=== PATIENT | male | born 1935 | race Asian ===

== ENCOUNTER 2017-10-16 19:54 | Inpatient (IN) | payer MEDICARE, MEDICAID ==
[2017-10-17] MEDS ORDERED: NITROGLYCERIN OINT 2% 1 INCH PACKET TP STA (01:37)
[2017-10-17] MEDS ORDERED: NITROGLYCERIN OINT 2% 1 INCH PACKET TP ONE (01:41)
[2017-10-17 04:06] VITALS: BP 198/80
[2017-10-17] MEDS ORDERED: CLONIDINE HCL 0.2 MG PO PRN (05:52)
[2017-10-17] MEDS ORDERED: Hydrocodone/APAP 5mg/325mg Tab PO PRN (05:52)
[2017-10-17] MEDS ORDERED: Magnesium Hydroxide (MOM) 30 mL UDC PO PRN (05:52)
[2017-10-17] MEDS ORDERED: Fleet Enema 135 mL RC PRN (05:52)
[2017-10-17] MEDS ORDERED: DARBEPOETIN ALFA IN POLYSORBAT 60 MCG IJ SCH (06:00)
--- NOTE | 2017-10-17 06:54 | ED Physician Chart ---
ED Chief Complaint/HPI - Patient Information Date Seen:: 10/16/17 Time Seen:: 21:30 Chief Complaint:: LOW HEMOGLOBIN IN 7 RANGE History of Present Illness:: KNOWN DIALYSIS WITH SEVERAL DAYS CHRONIC ANEMIA, REPORTED TO PMD, PMD SENT TO OTHER ER, NO BEDS AVAILABLE, DIVERTED TO [facility]. Allergies:: Allergies Allergy/AdvReac Type Severity Reaction Status Date / Time No Known Allergies Allergy Verified 10/17/17 00:05 Vitals:: Vital Signs - 8 hr 10/17/17 00:45 HR 66 BP 204/80 Historian:: Medical Records Review:: Nurse's Note Reviewed ED Review of Systems - Review of Systems Other: NO ROS POSSIBLE, PATIENT SUFFERING FROM DEMENTIA AND PSYCHOSIS. ED Past Medical History - Past Medical History Obtainable: No Family Medical History - Family Member Mother History Unknown: Yes ED Physical Exam - Physical Examination General/Constitutional: Awake Head: Atraumatic Other Eyes comments:: PALE CONJUCTIVA. ENMT: External ears, nose nl Neck: Nontender Respiratory: Nl effort/Exclusion, Clear to Auscultation Cardio Vascular: RRR GI: No tenderness/rebounding/guarding : No CVA tenderness Extremities: No tenderness or effusion Other Neuro/Psych comments:: SUFFERING FROM DEMENTIA AND PSYCHOSIS. Misc: Normal back ED Labs/Radiology/EKG Results - Lab Results Results: UNABLE TO DRAW FOR LABWORK PATIENT STARTED TO STRIKE OUT AT STAFF. ED Assessment - Assessment General Assessment: CHRONIC RENAL FAILURE WITH ANEMIA. HISTORY OF PSYCHOSIS WITH DEMENTIA. C. DIFF POSITIVE. ED Septic Shock - <6hrs of presentation: Vital Signs: Vital Signs - 8 hr 10/17/17 00:45 HR 66 BP 204/80 ED Reassessment (Disposition) - Reassessment Reassessment:: UNCHANGED CONDITION. PATIENT WAS SUPPOSED TO BE ADMITTED TO [facility], HOWEVER, THEY WERE NOT ABLE TO ACCEPT DUE TO VOLUME AND PATIENT WAS SENT HERE FOR EVALUATION. Reassessment Condition:: Unchanged - Diagnosis Diagnosis:: CHRONIC KIDNEY DISEASE WITH ANEMIA. - Patient Disposition Discharge/Transfer:: Acute Care w/in this hosp ED Discharge Plan - Patient Disposition Admit/Discharge/Transfer: Acute Care w/in this hosp Condition at Disposition: Stable
--- NOTE | 2017-10-17 07:50 | History and Physical ---
History of Present Illness - HPI Chief Complaint: Low Hemoglobin HPI: 82 year old male who presents to [facility] ER for evaluation of Low hemoglobin. Patient refused blood draw while in the ER. 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: Report: Dementia GI: Report: No Pertinent Hx Psych: Report: Psychosis Musculoskeletal: Report: Osteoarthritis Rheumatologic: Report: No pertinent Hx Infectious Disease: Report: No Pertinent Hx Renal/: Report: Chronic Renal Failure (on Hemodialysis) Endocrine: Report: Diabetes Dermatology: Report: No Pertinent Hx - Past Surgical History Past Surgical History: Other (Left Arm A-V shunt) Family Medical History - Family Member Mother History Unknown: Yes Ethnicity: Non- Social History Smoke: No Alcohol: None Drugs: None Lives: Long-Term - Medications Home Medications: Home Medication Medication Instructions Recorded Type Acetaminophen [Tylenol Extra 500 mg PO Q4HR PRN 10/17/17 History Strength] Acetaminophen [Tylenol] 650 mg PO Q4HR PRN 10/17/17 History Aspirin [Aspirin Chewable] 81 mg PO DAILY 10/17/17 History Bisacodyl [Dulcolax 10 Mg Supp] 10 mg RC DAILY PRN 10/17/17 History Calcium Carbonate [Tums] 500 mg PO Q6HR PRN 10/17/17 History Clonidine HCl [Catapres] 0.2 mg PO Q6HR PRN 10/17/17 History Darbepoetin Satish in Polysorbat 60 mcg IJ QWED 10/17/17 History [Aranesp] Fidaxomicin [Dificid] 200 mg PO BID 10/17/17 History Fleet Enema [Fleet Enema] 135 ml RC Q48HR PRN 10/17/17 History Hydrocodone/Acetaminophen [[place] 1 each PO Q6HR PRN 10/17/17 History 325 mg-5 mg*] Magnesium Hydroxide [Milk of 30 ml PO HS PRN 10/17/17 History Magnesia] Metoprolol Tartrate [Lopressor] 25 mg PO BID 10/17/17 History Nitroglycerin [Nitro-Bid] 1 inch TD Q8HR 10/17/17 History Pantoprazole [Protonix] 40 mg PO DAILY 10/17/17 History Sevelamer Carbonate [Renvela] 2.4 gm PO TID 10/17/17 History Vancomycin HCl [Vancocin] 250 mg PO BID 10/17/17 History Venlafaxine HCl ER [Effexor XR] 37.5 mg PO DAILY 10/17/17 History Zolpidem Tartrate [Ambien] 5 mg PO HS PRN 10/17/17 History cloNIDine 0.2 mg/24 hr 1 patch TD We 10/17/17 History [[id number]*] - Allergies Allergies/Adverse Reactions: Allergies Allergy/AdvReac Type Severity Reaction Status Date / Time No Known Allergies Allergy Verified 10/17/17 00:05 Review of Systems - Review of Systems Constitutional: Report: No Significant Eyes: Report: No Significant ENT: Report: No Significant Respiratory: Report: No Significant Cardiovascular: Report: No Significant Gastrointestinal: Report: No Significant Genitourinary: Report: No Significant Musculoskeletal: Report: No Significant Skin: Report: No Significant Neurological: Report: Confusion Physical Exam - Physical Exam HEENT: Report: Ears Nose Throat within normal limits, Pharnyx within normal limits Neck: Report: Within normal limits Cardiovascular Systems: Report: +s1/s2 noted, Regular, Rate and Rhythm Respiratory: Report: Breath Sounds are within normal limits Abdomen: Report: Non-tender to palpation, Tender to palpation Back: Report: Inspection of back is within normal limits. Extremities: Report: Non-tender to palpation. Skin: Report: Color of skin is within normal limits Neuro/Psych: Report: Mood affect is within normal limits, A+Ox3 - Assessment Assessment: Anemia -- repeat CBC ESRD on HD -- Renal consult, repeat BMP PNA ... will order chest xray sepsis ... order CBC anxiety/depression .. psychiatric consult COPD stable Dementia C- diff Psychosis DM ... accucheck CHF HTN ... continue Clonidine, Metoprolol - Plan Plan: see orders
[2017-10-17] MEDS ORDERED: SEVELAMER CARBONATE 2.4 GM PO SCH (09:00)
[2017-10-17] MEDS ORDERED: Venlafaxine HCl ER 37.5 mg Tab PO SCH (09:00)
[2017-10-17] MEDS ORDERED: VTE Chemical Prophylaxis Screen/Admission MC PRN (09:00)
[2017-10-17] MEDS ORDERED: FIDAXOMICIN 200 MG PO SCH (09:00)
[2017-10-17] MEDS ORDERED: VANCOMYCIN HCL 250 MG PO SCH (09:00)
[2017-10-17 10:20] LABS: % EOSINOPHILS 14.4 % (0.0-5.0); % LYMPHOCYTES 14.3 % (20.0-50.0); % MONOCYTES 10.3 % (2.0-10.0); BASOPHILE ABSOLUTE 0.1 Th/cumm (0-0.2); EOSINOPHILE ABSOLUTE 0.8 Th/cmm (0.1-0.4); HEMATOCRIT 28.3 % (41.0-60); HEMOGLOBIN 9.2 gm/dL (12-16); LYMPHOCYTE ABSOLUTE 0.8 Th/cmm (1.5-3.0); MEAN CELL VOLUME 93.4 fl (80-99); MEAN CORPUSCULAR HEMOGLOBIN 30.3 pg (27.0-31.0); MEAN CORPUSCULAR HGB CONC 32.4 pg (28.0-36.0); MEAN PLATELET VOLUME 6.4 fl; MONOCYTE ABSOLUTE 0.6 Th/cmm (0.3-1.0); NEUTROPHILE ABSOLUTE 3.3 Th/cmm (1.8-8.0); PLATELET COUNT 263 Th/cmm (150-400); RED BLOOD COUNT 3.03 Mil/cmm (3.80-5.80); RED CELL DISTRIBUTION WIDTH 19.6 % (11.5-20.0); WHITE BLOOD COUNT 5.6 Th/cmm (4.8-10.8)
[2017-10-17] MEDS: Pantoprazole 40 mg EC Tab PO SCH (10:25)
[2017-10-17] MEDS: Aspirin 81mg Chewable Tab PO SCH (10:25)
--- NOTE | 2017-10-17 10:27 | Diagnostic Imaging Report ---
CHEST X-RAY: AP view INDICATION: Congestion COMPARISON: None FINDINGS: Increased interstitial lung markings are noted. No focal consolidation. Small bilateral effusions are noted.. Cardiomegaly noted. Degenerative changes of the spine are noted. No evidence of pneumothorax. Right fifth and sixth rib fractures are noted, age indeterminate. Vascular stent of the left upper extremity is noted. IMPRESSION: Findings suggestive of mild pulmonary vascular congestion/early CHF. These correlate clinically. Right fifth and sixth rib fractures, age indeterminate. No evidence of a pneumothorax. Cardiomegaly.
[2017-10-17 10:44] LABS: ALB/GLOB RATIO 0.6 (1.0-1.8); ALBUMIN 2.9 gm/dL (4.2-5.5); ALKALINE PHOSPHATASE 276 U/L (34-104); ANION GAP 11.2 (7.0-16.0); BILIRUBIN,TOTAL 0.6 mg/dL (0.3-1.0); BUN - UREA NITROGEN 21 mg/dL (7-25); CALCIUM SERUM 8.7 mg/dL (8.6-10.3); CARBON DIOXIDE 28.6 mEq/L (21.0-31.0); CHLORIDE 96 mEq/L (98-107); CREATININE - SERUM 3.2 mg/dL (0.7-1.3); GLUCOSE 107 mg/dL (70-105); SGOT 20 U/L (13-39); SGPT/ALT 22 U/L (7-52); SODIUM SERUM 133 mEq/L (136-145); TOTAL PROTEIN,SERUM 7.6 gm/dL (6.0-8.3)
[2017-10-17 10:52] LABS: INR 1.09 (0.5-1.4); PROTHROMBIN TIME (TEST) 11.4 SECONDS (9.5-11.5)
[2017-10-17] MEDS: NITROGLYCERIN OINT 2% 1 INCH PACKET TP SCH ×2 (13:08→21:56)
[2017-10-17 13:15] LABS: POTASSIUM SERUM 2.8 mEq/L (3.5-5.1)
[2017-10-17] MEDS ORDERED: Potassium Chloride 20 mEq ER Tab PO ONE (13:46)
[2017-10-17] MEDS: Vancomycin HCL 250 mg /10mL UDC PO SCH ×3 (14:11→21:57)
--- NOTE | 2017-10-17 18:08 | Consultation ---
Consult Note - Consult Note Service Date: 10/17/17 Referring Physician: Simba Sy Consult Note: PHYSICIAN Consultation Note: Date of Admission: 10/17/17 Purpose of Consultation: sepsis, pneumonia. Chief Complaint: Patient FRED HUGHES was admitted to location Medical[facility] Unit I with ANEMIA,RENAL FAILURE. History of Present Illness: 82 year old male with history of dementia, CKD 5 on HD, brought from SNF for anemia. As patient was suspected to have pneumonia nad sepsis, he was started on vanco IV and ID consult was called for antibiotic management. He is afebrile and WBC count was 5,600. He has been refusing IV access. Past Medical History: PNA, sepsis, anxiety/depression, COPD, Dementia, C- diff, ESRD, Anemia, Psychosis, DM, CHF, HTN. Allergies Allergy/AdvReac Type Severity Reaction Status Date / Time No Known Allergies Allergy Verified 10/17/17 00:05 Vital Signs Temp 97.8 F 10/17/17 15:54 Pulse 72 10/17/17 17:11 Resp 17 10/17/17 15:54 BP 137/52 10/17/17 17:11 Pulse Ox 98 10/17/17 15:54 Intake & Output 10/16/17 10/17/17 10/17/17 18:59 06:59 18:59 Intake Total 360 Balance 360 Weight (lbs) 48.988 kg Intake: Oral 360 Other: # Voids 2 Laboratory Results - last 24 hr 10/17/17 10/17/17 10/17/17 09:55 09:55 09:55 WBC 5.6 RBC 3.03 L Hgb 9.2 L Hct 28.3 L MCV 93.4 MCH 30.3 MCHC Differential 32.4 RDW 19.6 Plt Count 263 MPV 6.4 Neutrophils % 60.0 Lymphocytes % 14.3 L Monocytes % 10.3 H Eosinophils % 14.4 H Basophils % 1.0 PT 11.4 INR 1.09 Sodium Potassium Chloride Carbon Dioxide Anion Gap BUN Creatinine Est GFR ( Amer) Est GFR (Non-Af Amer) BUN/Creatinine Ratio Glucose Calcium Total Bilirubin AST ALT Alkaline Phosphatase Total Protein Albumin Globulin Albumin/Globulin Ratio Blood Type AB POSITIVE Antibody Screen NEGATIVE 10/17/17 09:55 WBC RBC Hgb Hct MCV MCH MCHC Differential RDW Plt Count MPV Neutrophils % Lymphocytes % Monocytes % Eosinophils % Basophils % PT INR Sodium 133 L Potassium 2.8 L* Chloride 96 L Carbon Dioxide 28.6 Anion Gap 11.2 BUN 21 Creatinine 3.2 H Est GFR ( Amer) TNP Est GFR (Non-Af Amer) TNP BUN/Creatinine Ratio 6.6 Glucose 107 H Calcium 8.7 Total Bilirubin 0.6 AST 20 ALT 22 Alkaline Phosphatase 276 H Total Protein 7.6 Albumin 2.9 L Globulin 4.7 Albumin/Globulin Ratio 0.6 L Blood Type Antibody Screen Home Medication Medication Instructions Recorded Type Acetaminophen [Tylenol Extra 500 mg PO Q4HR PRN 10/17/17 History Strength] Acetaminophen [Tylenol] 650 mg PO Q4HR PRN 10/17/17 History Aspirin [Aspirin Chewable] 81 mg PO DAILY 10/17/17 History Bisacodyl [Dulcolax 10 Mg Supp] 10 mg RC DAILY PRN 10/17/17 History Calcium Carbonate [Tums] 500 mg PO Q6HR PRN 10/17/17 History Clonidine HCl [Catapres] 0.2 mg PO Q6HR PRN 10/17/17 History Darbepoetin Satish in Polysorbat 60 mcg IJ QWED 10/17/17 History [Aranesp] Fidaxomicin [Dificid] 200 mg PO BID 10/17/17 History Fleet Enema [Fleet Enema] 135 ml RC Q48HR PRN 10/17/17 History Hydrocodone/Acetaminophen [[place] 1 each PO Q6HR PRN 10/17/17 History 325 mg-5 mg*] Magnesium Hydroxide [Milk of 30 ml PO HS PRN 10/17/17 History Magnesia] Metoprolol Tartrate [Lopressor] 25 mg PO BID 10/17/17 History Nitroglycerin [Nitro-Bid] 1 inch TD Q8HR 10/17/17 History Pantoprazole [Protonix] 40 mg PO DAILY 10/17/17 History Sevelamer Carbonate [Renvela] 2.4 gm PO TID 10/17/17 History Vancomycin HCl [Vancocin] 250 mg PO BID 10/17/17 History Venlafaxine HCl ER [Effexor XR] 37.5 mg PO DAILY 10/17/17 History Zolpidem Tartrate [Ambien] 5 mg PO HS PRN 10/17/17 History cloNIDine 0.2 mg/24 hr 1 patch TD We 10/17/17 History [[id number]-[id number]-9*] Current Medications Generic Name Dose Route Start Last Admin Trade Name Freq PRN Reason Stop Dose Admin Acetaminophen 650 mg 10/17/17 05:52 Tylenol PO 12/16/17 05:51 Q4HR PRN Pain or Fever >101 Acetaminophen/Hydrocodone Bitart 1 tab 10/17/17 05:52 [place] 5mg/325mg PO 12/16/17 05:51 Q6HR PRN Pain (Severe) Aspirin 81 mg 10/17/17 09:00 10/17/17 10:25 Aspirin Chewable PO 12/16/17 08:59 Not Given DAILY LUIGI Bisacodyl 10 mg 10/17/17 05:52 Dulcolax 10 Mg Supp RC 12/16/17 05:51 DAILY PRN Constipation Calcium Carbonate 500 mg 10/17/17 05:52 Tums PO 12/16/17 05:51 Q6HR PRN Heartburn Clonidine HCl 1 patch 10/21/17 05:52 [id number]-[id number]-8 TD 12/20/17 05:51 QMON [facility] Epoetin Satish 10,000 units 10/19/17 12:33 Epogen SUBQ 12/18/17 12:32 MoWeFr [facility] Magnesium Hydroxide 30 ml 10/17/17 05:52 Milk Of Magnesia PO 12/16/17 05:51 HS PRN Constipation Metoprolol Tartrate 25 mg 10/17/17 09:00 10/17/17 17:11 Lopressor PO 12/16/17 08:59 Not Given BID LUIGI Miscellaneous 0.2 mg 10/17/17 05:52 Clonidine Hcl [Catapres] PO Q6HR PRN SBP > 160 Miscellaneous 1 ea 10/17/17 09:00 Vte Chemical Prophylaxis Screen/ Admission [facility] 12/16/17 08:59 PRN PRN PROTOCOL Nitroglycerin 1 inch 10/17/17 13:00 10/17/17 13:08 Nitro-Bid TP 12/16/17 12:59 1 inch Q8HR [facility]I Administration Pantoprazole Sodium 40 mg 10/17/17 09:00 10/17/17 10:25 Protonix PO 12/16/17 08:59 Not Given DAILY [facility] Sevelamer Carbonate 2,400 mg 10/17/17 09:00 10/17/17 14:11 Renvela PO 12/16/17 08:59 Not Given TID [facility] Sodium Phosphate 135 ml 10/17/17 05:52 Fleet Enema RC 12/16/17 05:51 Q48HR PRN Constipation Vancomycin HCl 250 mg 10/17/17 13:00 10/17/17 17:12 Vancomycin Oral PO 12/16/17 12:59 Not Given QID [facility] Venlafaxine HCl 37.5 mg 10/17/17 09:00 Effexor Xr PO 12/16/17 08:59 DAILY [facility] Protocol Zolpidem Tartrate 5 mg 10/17/17 05:52 Ambien PO 12/16/17 05:51 HS PRN Insomnia Review of Systems: A 12 point ROS was reviewed with the pertinent positive and negatives noted in the HPI. Social History Smoking Status Smoker, status unknown Drug Use No Alcohol Use No Family Medical History Unknown. Physical Exam: General: comfortable, not in any distress. HEENT: Head is normocephalic, atraumatic. Oral cavity moist pink tongue, eyes: pallor present. Left eye: cornial opacity. Neck: supple, no JVD. no carotid bruit. Cardio: S1 and S2, dystolic murmur present. Respiratory: vesicular breath sounds, crackles present. Abdominal: Soft NT ND BS present. Genital/Urinary: deferred. Extremities: NCCE. AV fistula in the left arm. Neurological: Alert awake oriented x 3. Assessment: 1. Pneumonia versus CHF, more likely CHF. 2. CKD 5 on HD. 3. Protein calorie malnutrition. 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 5. anxiety/depression 6. COPD. 7. Dementia. 8. C- diff. 9. ESRD. 10. Anemia. 11. Psychosis. 12. DM. 13. CHF. 14. HTN Plan: Patient is refusing IV access. Will change antibiotic to levaquin po. for few days,. meanwhile follow up sepsis w/u. If blood culture remain negative, may dc antibiotics. Thank you, Dr Sy for involving me in taking care of this patient,. Signed, Jose Parikh M.D. [id number]
--- NOTE | 2017-10-18 02:19 | Consultation ---
DATE OF CONSULTATION: 10/17/2017 The patient was seen and evaluated. The patient's chart reviewed. His initial consult and evaluation from psychiatry. REFERRING PHYSICIAN: Dr. Simba Sy CONSULTING PHYSICIAN: Dr. Castro REASON FOR CONSULTATION: Agitation. CHIEF COMPLAINT: Selectively mute. HISTORY OF PRESENT ILLNESS: The patient is an 82-year-old male who was brought in here from the Hospital ER for an evaluation of hemoglobin that was low. Since the hospital course, the patient has been refusing blood draws, refusing with the medications, even with the assistance of a clinical operations manager on the unit, the patient is selectively mute and does not engage in the interview and selectively mute. He continues to position, disengaged and withdrawn and almost observed to be scared. Therefore, a poor historian, limited historian gathered from his current visitation with further collateral is needed from family. PAST MEDICAL HISTORY: Includes history of pneumonia, currently worked up for sepsis history in the past, COPD, dementia, C. diff, end-stage renal disease, anemia, diabetes, CHF and hypertension. PAST PSYCHIATRIC HISTORY: History of dementia and depression. ALLERGIES TO MEDICATIONS: NKDA. PSYCHOSOCIAL ENVIRONMENTAL HISTORY: Lives with the family. Denies any sexual abuse. Unable to elaborate any more beyond that. No history of recent drug or alcohol use. FAMILY PSYCHIATRIC HISTORY: None. CURRENT HOME MEDICATIONS: Include aspirin, Colace, Aranesp, metoprolol not sure. Glycerin, mag ox, vancomycin, Effexor 37.5 and Ambien 5 mg p.o. p.r.n. PREVIOUS INPATIENT OR OUTPATIENT PSYCHIATRIC HOSPITALIZATIONS: Unknown. PREVIOUS SUICIDE ATTEMPT: Unknown. MENTAL STATUS EXAMINATION: He is in his room, in position, scared, selectively mute, disengaged and withdrawn. Limited insight, judgment and impulse control. Unable to assess immediate, recent memory, attention span upon information, concentration and fund of knowledge due to patient refusal. ASSESSMENT AND PLAN: The patient is an 82-year-old male with history of depression, who was brought in here, found to have low levels of hemoglobin and also potassium, being repleted who finds himself recently refusing medications and even with the translating services. The patient is selectively mute and easily irritable. It is not uncommon with the patient's current multiple medical comorbidities and also history of dementia with the change in the comorbid medical illnesses to exacerbate the underlying patient's behavior. Unclear how much of his symptoms are secondary to delirium and currently being worked up for sepsis per medical team. In the meantime, recommend to continue with the current medication regimen, which includes Effexor, since the patient has been on it and without side effects. Do recommend to use low doses of Seroquel 25 mg p.o. b.i.d. for acute agitation as needed. If the patient continues to refuse p.o., may recommend low dosages of Zyprexa 2.5 mg IM only if the patient's behavior disturbance causes any potential risk to self or others. In the meantime, we will continue follow alongside and making recommendations as he continues to being worked up medically at this point. Anticholinergics and benzodiazepines may disinhibit the patient, please use cautiously as it would exacerbate the patient's neurocognitive impairment and also behavior disturbances. PRIMARY DIAGNOSES: Major depressive disorder. SECONDARY DIAGNOSES: Dementia with behavior disturbances, rule out delirium. Medical diagnosis as noted by Dr. Sy includes anemia, end-stage renal disease, pneumonia, sepsis, chronic obstructive pulmonary disease, diabetes, congestive heart failure, hypertension. 1. No criteria for 5150 at this point. 2. Will continue to follow alongside during the medical workup is being made. Once the patient is medically cleared and the patient continues to be behaviorally putting himself or others in danger, may consider transfer to [facility] once medically cleared and if he continues to have behavior disturbances. 3. Provide supportive therapy. 4. We will continue obtaining more collateral baseline information. 5. Recommend low doses of Seroquel 25 mg p.o. b.i.d. p.r.n. for acute agitation. May recommended formulary of Zyprexa 2.5 mg IM if the patient presents himself in danger. Overall, recommend low use or no use at all of benzodiazepines and anticholinergic as it would exacerbate the patient's delirium. JOB# [id number]
[2017-10-18] MEDS: NITROGLYCERIN OINT 2% 1 INCH PACKET TP SCH ×4 (05:26→22:23)
--- NOTE | 2017-10-18 06:44 | General Progress Note ---
Subjective - Review of Systems Service Date: 10/18/17 Subjective: 82 year old male admitted for low hemoglobin, ESRD on HD. Still refusing IV's. labwork done yesterday. Objective - Results Result Diagrams: 10/17/17 09:55 10/17/17 09:55 Recent Labs: Laboratory Last Values WBC 5.6 Th/cmm (4.8-10.8) 10/17/17 09:55 RBC 3.03 Mil/cmm (3.80-5.80) L 10/17/17 09:55 Hgb 9.2 gm/dL (12-16) L 10/17/17 09:55 Hct 28.3 % (41.0-60) L 10/17/17 09:55 MCV 93.4 fl (80-99) 10/17/17 09:55 MCH 30.3 pg (27.0-31.0) 10/17/17 09:55 MCHC Differential 32.4 pg (28.0-36.0) 10/17/17 09:55 RDW 19.6 % (11.5-20.0) 10/17/17 09:55 Plt Count 263 Th/cmm (150-400) 10/17/17 09:55 MPV 6.4 fl 10/17/17 09:55 Neutrophils % 60.0 % (40.0-80.0) 10/17/17 09:55 Lymphocytes % 14.3 % (20.0-50.0) L 10/17/17 09:55 Monocytes % 10.3 % (2.0-10.0) H 10/17/17 09:55 Eosinophils % 14.4 % (0.0-5.0) H 10/17/17 09:55 Basophils % 1.0 % (0.0-2.0) 10/17/17 09:55 PT 11.4 SECONDS (9.5-11.5) 10/17/17 09:55 INR 1.09 (0.5-1.4) 10/17/17 09:55 Sodium 133 mEq/L (136-145) L 10/17/17 09:55 Potassium 2.8 mEq/L (3.5-5.1) L* 10/17/17 09:55 Chloride 96 mEq/L (98-107) L 10/17/17 09:55 Carbon Dioxide 28.6 mEq/L (21.0-31.0) 10/17/17 09:55 Anion Gap 11.2 (7.0-16.0) 10/17/17 09:55 BUN 21 mg/dL (7-25) 10/17/17 09:55 Creatinine 3.2 mg/dL (0.7-1.3) H 10/17/17 09:55 Est GFR ( Amer) TNP 10/17/17 09:55 Est GFR (Non-Af Amer) TNP 10/17/17 09:55 BUN/Creatinine Ratio 6.6 10/17/17 09:55 Glucose 107 mg/dL (70-105) H 10/17/17 09:55 Calcium 8.7 mg/dL (8.6-10.3) 10/17/17 09:55 Total Bilirubin 0.6 mg/dL (0.3-1.0) 10/17/17 09:55 AST 20 U/L (13-39) 10/17/17 09:55 ALT 22 U/L (7-52) 10/17/17 09:55 Alkaline Phosphatase 276 U/L (34-104) H 10/17/17 09:55 Total Protein 7.6 gm/dL (6.0-8.3) 10/17/17 09:55 Albumin 2.9 gm/dL (4.2-5.5) L 10/17/17 09:55 Globulin 4.7 gm/dL 10/17/17 09:55 Albumin/Globulin Ratio 0.6 (1.0-1.8) L 10/17/17 09:55 Blood Type AB POSITIVE 10/17/17 09:55 Antibody Screen NEGATIVE 10/17/17 09:55 - Physical Exam Vitals and I&O: Vital Signs Temp 97.5 F 10/18/17 04:44 Pulse 72 10/18/17 05:26 Resp 18 10/18/17 04:44 BP 185/69 10/18/17 05:26 Pulse Ox 99 10/18/17 04:44 Intake & Output 10/17/17 10/17/17 10/18/17 06:59 18:59 06:59 Intake Total 360 200 240 Balance 360 200 240 Weight (lbs) 48.988 kg 48.988 kg 48.988 kg Intake: Oral 360 200 240 Other: # Voids 2 1 2 Active Medications: Current Medications Acetaminophen (Tylenol) 650 mg PO Q4HR PRN PRN Reason: Pain or Fever >101 Stop: 12/16/17 05:51 Acetaminophen/Hydrocodone Bitart ([place] 5mg/325mg) 1 tab PO Q6HR PRN PRN Reason: Pain (Severe) Stop: 12/16/17 05:51 Aspirin (Aspirin Chewable) 81 mg PO DAILY [facility] Stop: 12/16/17 08:59 Last Admin: 10/17/17 10:25 Dose: Not Given Bisacodyl (Dulcolax 10 Mg Supp) 10 mg RC DAILY PRN PRN Reason: Constipation Stop: 12/16/17 05:51 Calcium Carbonate (Tums) 500 mg PO Q6HR PRN PRN Reason: Heartburn Stop: 12/16/17 05:51 Clonidine HCl (Nxfnkcat-Eye-4) 1 patch TD QMON [facility] Stop: 12/20/17 05:51 Epoetin Satish (Epogen) 10,000 units SUBQ MoWeFr [facility] Stop: 12/18/17 12:32 Levofloxacin (Levaquin) 250 mg PO Q48H [facility] Stop: 12/18/17 20:59 Magnesium Hydroxide (Milk Of Magnesia) 30 ml PO HS PRN PRN Reason: Constipation Stop: 12/16/17 05:51 Metoprolol Tartrate (Lopressor) 25 mg PO BID [facility] Stop: 12/16/17 08:59 Last Admin: 10/17/17 17:11 Dose: Not Given Miscellaneous (Clonidine Hcl [Catapres]) 0.2 mg PO Q6HR PRN PRN Reason: SBP > 160 Miscellaneous (Vte Chemical Prophylaxis Screen/ Admission) 1 ea [facility] PRN PRN PRN Reason: PROTOCOL Stop: 12/16/17 08:59 Nitroglycerin (Nitro-Bid) 1 inch TP Q8HR [facility] Stop: 12/16/17 12:59 Last Admin: 10/18/17 05:26 Dose: 1 inch Pantoprazole Sodium (Protonix) 40 mg PO DAILY [facility] Stop: 12/16/17 08:59 Last Admin: 10/17/17 10:25 Dose: Not Given Sevelamer Carbonate (Renvela) 2,400 mg PO TID [facility] Stop: 12/16/17 08:59 Last Admin: 10/17/17 21:57 Dose: Not Given Sodium Phosphate (Fleet Enema) 135 ml RC Q48HR PRN PRN Reason: Constipation Stop: 12/16/17 05:51 Vancomycin HCl (Vancomycin Oral) 250 mg PO QID [facility] Stop: 12/16/17 12:59 Last Admin: 10/17/17 21:57 Dose: Not Given Venlafaxine HCl (Effexor Xr) 37.5 mg PO DAILY [facility] PRN Reason: Protocol Stop: 12/16/17 08:59 Zolpidem Tartrate (Ambien) 5 mg PO HS PRN PRN Reason: Insomnia Stop: 12/16/17 05:51 Last Admin: 10/17/17 23:54 Dose: 5 mg General: Alert HEENT: Atraumatic, PERRLA Neck: Supple Cardiovascular: Regular rate, Normal S1, Normal S2 Abdomen: Bowel sounds, Soft Extremities: no Clubbing, no Cyanosis, no Edema Neurological: Normal gait Assessment/Plan - Assessment Assessment: Anemia -- repeat CBC ESRD on HD -- Renal consult, repeat BMP PNA ... will order chest xray sepsis ... order CBC anxiety/depression .. psychiatric consult COPD stable Dementia C- diff Psychosis DM ... accucheck CHF HTN ... continue Clonidine, Metoprolol
[2017-10-18] MEDS: Pantoprazole 40 mg EC Tab PO SCH (08:58)
[2017-10-18] MEDS: Aspirin 81mg Chewable Tab PO SCH (08:58)
[2017-10-18] MEDS: Vancomycin HCL 250 mg /10mL UDC PO SCH ×3 (08:58→18:04)
--- NOTE | 2017-10-18 16:06 | General Progress Note ---
Subjective - Review of Systems Service Date: 10/18/17 Subjective: awake, confused Objective - Results Result Diagrams: 10/17/17 09:55 10/17/17 09:55 Recent Labs: Laboratory Last Values WBC 5.6 Th/cmm (4.8-10.8) 10/17/17 09:55 RBC 3.03 Mil/cmm (3.80-5.80) L 10/17/17 09:55 Hgb 9.2 gm/dL (12-16) L 10/17/17 09:55 Hct 28.3 % (41.0-60) L 10/17/17 09:55 MCV 93.4 fl (80-99) 10/17/17 09:55 MCH 30.3 pg (27.0-31.0) 10/17/17 09:55 MCHC Differential 32.4 pg (28.0-36.0) 10/17/17 09:55 RDW 19.6 % (11.5-20.0) 10/17/17 09:55 Plt Count 263 Th/cmm (150-400) 10/17/17 09:55 MPV 6.4 fl 10/17/17 09:55 Neutrophils % 60.0 % (40.0-80.0) 10/17/17 09:55 Lymphocytes % 14.3 % (20.0-50.0) L 10/17/17 09:55 Monocytes % 10.3 % (2.0-10.0) H 10/17/17 09:55 Eosinophils % 14.4 % (0.0-5.0) H 10/17/17 09:55 Basophils % 1.0 % (0.0-2.0) 10/17/17 09:55 PT 11.4 SECONDS (9.5-11.5) 10/17/17 09:55 INR 1.09 (0.5-1.4) 10/17/17 09:55 Sodium 133 mEq/L (136-145) L 10/17/17 09:55 Potassium 2.8 mEq/L (3.5-5.1) L* 10/17/17 09:55 Chloride 96 mEq/L (98-107) L 10/17/17 09:55 Carbon Dioxide 28.6 mEq/L (21.0-31.0) 10/17/17 09:55 Anion Gap 11.2 (7.0-16.0) 10/17/17 09:55 BUN 21 mg/dL (7-25) 10/17/17 09:55 Creatinine 3.2 mg/dL (0.7-1.3) H 10/17/17 09:55 Est GFR ( Amer) TNP 10/17/17 09:55 Est GFR (Non-Af Amer) TNP 10/17/17 09:55 BUN/Creatinine Ratio 6.6 10/17/17 09:55 Glucose 107 mg/dL (70-105) H 10/17/17 09:55 Calcium 8.7 mg/dL (8.6-10.3) 10/17/17 09:55 Total Bilirubin 0.6 mg/dL (0.3-1.0) 10/17/17 09:55 AST 20 U/L (13-39) 10/17/17 09:55 ALT 22 U/L (7-52) 10/17/17 09:55 Alkaline Phosphatase 276 U/L (34-104) H 10/17/17 09:55 Total Protein 7.6 gm/dL (6.0-8.3) 10/17/17 09:55 Albumin 2.9 gm/dL (4.2-5.5) L 10/17/17 09:55 Globulin 4.7 gm/dL 10/17/17 09:55 Albumin/Globulin Ratio 0.6 (1.0-1.8) L 10/17/17 09:55 Blood Type AB POSITIVE 10/17/17 09:55 Antibody Screen NEGATIVE 10/17/17 09:55 - Physical Exam Vitals and I&O: Vital Signs Temp 97.3 F 10/18/17 12:00 Pulse 70 10/18/17 13:43 Resp 19 10/18/17 12:00 BP 175/91 10/18/17 12:00 Pulse Ox 94 10/18/17 12:00 Intake & Output 10/17/17 10/18/17 10/18/17 18:59 06:59 18:59 Intake Total 200 240 Balance 200 240 Weight (lbs) 48.988 kg 48.988 kg Intake: Oral 200 240 Other: # Voids 1 2 Active Medications: Current Medications Acetaminophen (Tylenol) 650 mg PO Q4HR PRN PRN Reason: Pain or Fever >101 Stop: 12/16/17 05:51 Acetaminophen/Hydrocodone Bitart ([place] 5mg/325mg) 1 tab PO Q6HR PRN PRN Reason: Pain (Severe) Stop: 12/16/17 05:51 Aspirin (Aspirin Chewable) 81 mg PO DAILY [facility] Stop: 12/16/17 08:59 Last Admin: 10/18/17 08:58 Dose: Not Given Bisacodyl (Dulcolax 10 Mg Supp) 10 mg RC DAILY PRN PRN Reason: Constipation Stop: 12/16/17 05:51 Calcium Carbonate (Tums) 500 mg PO Q6HR PRN PRN Reason: Heartburn Stop: 12/16/17 05:51 Clonidine HCl (Bpnkoiju-Ywp-9) 1 patch TD QMON [facility] Stop: 12/20/17 05:51 Epoetin Satish (Epogen) 10,000 units SUBQ MoWeFr [facility] Stop: 12/18/17 12:32 Levofloxacin (Levaquin) 250 mg PO Q48H [facility] Stop: 12/18/17 20:59 Magnesium Hydroxide (Milk Of Magnesia) 30 ml PO HS PRN PRN Reason: Constipation Stop: 12/16/17 05:51 Metoprolol Tartrate (Lopressor) 25 mg PO BID [facility] Stop: 12/16/17 08:59 Last Admin: 10/18/17 08:58 Dose: Not Given Miscellaneous (Vte Chemical Prophylaxis Screen/ Admission) 1 ea MC PRN PRN PRN Reason: PROTOCOL Stop: 12/16/17 08:59 Nitroglycerin (Nitro-Bid) 1 inch TP Q8HR [facility] Stop: 12/16/17 12:59 Last Admin: 10/18/17 13:49 Dose: Not Given Pantoprazole Sodium (Protonix) 40 mg PO DAILY [facility] Stop: 12/16/17 08:59 Last Admin: 10/18/17 08:58 Dose: Not Given Sevelamer Carbonate (Renvela) 2,400 mg PO TID [facility] Stop: 12/16/17 08:59 Last Admin: 10/18/17 13:48 Dose: Not Given Sodium Phosphate (Fleet Enema) 135 ml RC Q48HR PRN PRN Reason: Constipation Stop: 12/16/17 05:51 Vancomycin HCl (Vancomycin Oral) 250 mg PO QID [facility] Stop: 12/16/17 12:59 Last Admin: 10/18/17 13:49 Dose: Not Given Venlafaxine HCl (Effexor Xr) 37.5 mg PO DAILY [facility] PRN Reason: Protocol Stop: 12/16/17 08:59 Zolpidem Tartrate (Ambien) 5 mg PO HS PRN PRN Reason: Insomnia Stop: 12/16/17 05:51 Last Admin: 10/17/17 23:54 Dose: 5 mg General: Alert HEENT: Atraumatic, PERRLA Neck: Supple Cardiovascular: Regular rate, Normal S1, Normal S2 Lungs: Clear to auscultation Abdomen: Bowel sounds, Soft Extremities: no Clubbing, no Cyanosis, no Edema Neurological: Normal gait Assessment/Plan - Assessment Assessment: ESRD on HD Anemia of CKD Ess Htn COPD Psych C. diff Type 2 DM - Plan Plan: Lab - Result Diagrams 10/17/17 09:55 10/17/17 09:55 Current Medications Acetaminophen (Tylenol) 650 mg PO Q4HR PRN PRN Reason: Pain or Fever >101 Stop: 12/16/17 05:51 Acetaminophen/Hydrocodone Bitart ([place] 5mg/325mg) 1 tab PO Q6HR PRN PRN Reason: Pain (Severe) Stop: 12/16/17 05:51 Aspirin (Aspirin Chewable) 81 mg PO DAILY [facility] Stop: 12/16/17 08:59 Last Admin: 10/18/17 08:58 Dose: Not Given Bisacodyl (Dulcolax 10 Mg Supp) 10 mg RC DAILY PRN PRN Reason: Constipation Stop: 12/16/17 05:51 Calcium Carbonate (Tums) 500 mg PO Q6HR PRN PRN Reason: Heartburn Stop: 12/16/17 05:51 Clonidine HCl (Gsqhsjsi-Isr-6) 1 patch TD QMON [facility] Stop: 12/20/17 05:51 Epoetin Satish (Epogen) 10,000 units SUBQ MoWeFr [facility] Stop: 12/18/17 12:32 Levofloxacin (Levaquin) 250 mg PO Q48H [facility] Stop: 12/18/17 20:59 Magnesium Hydroxide (Milk Of Magnesia) 30 ml PO HS PRN PRN Reason: Constipation Stop: 12/16/17 05:51 Metoprolol Tartrate (Lopressor) 25 mg PO BID [facility] Stop: 12/16/17 08:59 Last Admin: 10/18/17 08:58 Dose: Not Given Miscellaneous (Vte Chemical Prophylaxis Screen/ Admission) 1 ea MC PRN PRN PRN Reason: PROTOCOL Stop: 12/16/17 08:59 Nitroglycerin (Nitro-Bid) 1 inch TP Q8HR [facility] Stop: 12/16/17 12:59 Last Admin: 10/18/17 13:49 Dose: Not Given Pantoprazole Sodium (Protonix) 40 mg PO DAILY [facility] Stop: 12/16/17 08:59 Last Admin: 10/18/17 08:58 Dose: Not Given Sevelamer Carbonate (Renvela) 2,400 mg PO TID [facility] Stop: 12/16/17 08:59 Last Admin: 10/18/17 13:48 Dose: Not Given Sodium Phosphate (Fleet Enema) 135 ml RC Q48HR PRN PRN Reason: Constipation Stop: 12/16/17 05:51 Vancomycin HCl (Vancomycin Oral) 250 mg PO QID [facility] Stop: 12/16/17 12:59 Last Admin: 10/18/17 13:49 Dose: Not Given Venlafaxine HCl (Effexor Xr) 37.5 mg PO DAILY [facility] PRN Reason: Protocol Stop: 12/16/17 08:59 Zolpidem Tartrate (Ambien) 5 mg PO HS PRN PRN Reason: Insomnia Stop: 12/16/17 05:51 Last Admin: 10/17/17 23:54 Dose: 5 mg Lab - Result Diagrams 10/17/17 09:55 10/17/17 09:55 refusing blood draw & meds schedule for HD in am
[2017-10-19] MEDS ORDERED: Albumin 25% 25gm/100mL 25 GM/100 ML BTL IV PRN
--- NOTE | 2017-10-19 02:07 | Consultation ---
DATE OF CONSULTATION: 10/17/2017 REASON FOR CONSULT: The patient came in because of anemia. HISTORY OF PRESENT ILLNESS: This is an 82-year-old male with past medical history of end-stage renal disease, on hemodialysis, who was brought in because of severe anemia. A few days prior to admission, the patient had blood drawn at a dialysis unit. His hemoglobin/hematocrit was 7/21 and a potassium of 3.6. He was transported to the nearest hospital as ordered by his primary medical physician, but was eventually diverted to [facility]. He refused any blood draw upon arrival at the Emergency Room. PAST MEDICAL HISTORY: 1. End-stage renal disease, on hemodialysis. 2. History of pneumonia. 3. Essential hypertension. 4. Type 2 diabetes mellitus. 5. COPD. 6. Dementia without behavioral disturbance. 7. Status post fracture of right 5th and 6th ribs. 8. Anemia of chronic kidney disease. 9. Anxiety/depression. 10. Psychosis. CURRENT MEDICATIONS: He is currently on acetaminophen, aspirin, bisacodyl, calcium carbonate, clonidine, Aranesp, Dificid, hydrocodone/APAP, magnesium hydroxide, metoprolol, nitroglycerin, pantoprazole, sevelamer, vancomycin, venlafaxine, zolpidem. ALLERGIES: No known drug allergies. SOCIAL AND FAMILY HISTORY: I was not able to obtain directly from the patient because of his dementia. REVIEW OF SYSTEMS: Again, I was not able to decipher from the patient because of the same reason. PHYSICAL EXAMINATION: GENERAL: The patient is awake, somewhat confused, uncooperative. VITAL SIGNS: Blood pressure 198/80, pulse 66, temperature 97.6 degrees. SKIN: Poor turgor, warm. No rash, no jaundice appreciated. HEENT: Head is normocephalic and atraumatic. Eyes: Extraocular muscles intact; however, unable to assess his pupils. Anicteric sclerae. Pale conjunctivae. Nose, midline nasal septum. Mouth: Dry mucosa with poor dentition. NECK: Supple. No adenopathy. No thyromegaly. No bruits. Trachea palpated in the midline. CHEST AND CVS: S1 and S2. No rub, murmur, or gallop appreciated. Unable to assess point of maximal impulse because the patient was not cooperative. LUNGS: Equal expansion. No use of accessory muscles. No supraclavicular retractions. Decreased breath sounds. No rhonchi, no rales appreciated. ABDOMEN: Flat and soft. Positive for bowel sounds. No bruits either diastolic or systolic. RECTAL AND GENITOURINARY: Unable to examine because the patient is not cooperative. EXTREMITIES: He has conducted lower extremities, no evidence of any edema nor cyanosis or clubbing. I was not able to assess his pulses because he was not cooperative; however, he has a very good bruit and thrill on his left upper arm AV graft. NEUROLOGIC: As mentioned, the patient is awake with voluntary movements of his extremities, but not cooperative at all to pursue for my neuro exam. IMPRESSION: 1. End-stage renal disease, on hemodialysis. 2. Severe anemia secondary to chronic kidney disease. Possible gastrointestinal bleed. 3. History of Clostridium difficile colitis. 4. Essential hypertension with chronic kidney disease. 5. Type 2 diabetes mellitus with chronic kidney disease. 6. Chronic obstructive pulmonary disease. 7. Dementia without behavioral disturbance. 8. Status post fracture of right 5th and 6th ribs. 9. Anemia of chronic kidney disease. 10. Anxiety/depression. 11. Psychosis. PLAN: 1. We will schedule dialysis for today because the patient will require at least 1 unit packed RBC. 2. Hopefully, the patient will agree with blood draw and be able to get type and cross and followup CBC. 3. Try to control blood pressure. Thank you Dr. Sy for this consult. I will follow the patient closely with you. JOB# [id number]
[2017-10-19] MEDS: Vancomycin HCL 250 mg /10mL UDC PO SCH ×6 (03:11→21:58)
[2017-10-19] MEDS: NITROGLYCERIN OINT 2% 1 INCH PACKET TP SCH ×3 (06:22→21:57)
[2017-10-19 07:16] LABS: % BASOPHILS 0.1 % (0.0-2.0); % LYMPHOCYTES 16.9 % (20.0-50.0); % MONOCYTES 8.9 % (2.0-10.0); % NEUTROPHILS 56.1 % (40.0-80.0); HEMATOCRIT 28.9 % (41.0-60); HEMOGLOBIN 9.7 gm/dL (12-16); LYMPHOCYTE ABSOLUTE 0.9 Th/cmm (1.5-3.0); MEAN CELL VOLUME 92.5 fl (80-99); MEAN CORPUSCULAR HEMOGLOBIN 30.9 pg (27.0-31.0); MEAN CORPUSCULAR HGB CONC 33.4 pg (28.0-36.0); MEAN PLATELET VOLUME 6.8 fl; MONOCYTE ABSOLUTE 0.5 Th/cmm (0.3-1.0); NEUTROPHILE ABSOLUTE 3.1 Th/cmm (1.8-8.0); PLATELET COUNT 277 Th/cmm (150-400); RED BLOOD COUNT 3.13 Mil/cmm (3.80-5.80); RED CELL DISTRIBUTION WIDTH 19.5 % (11.5-20.0); WHITE BLOOD COUNT 5.5 Th/cmm (4.8-10.8)
[2017-10-19 07:31] LABS: ALB/GLOB RATIO 0.6 (1.0-1.8); ALBUMIN 3.2 gm/dL (4.2-5.5); ALKALINE PHOSPHATASE 275 U/L (34-104); ANION GAP 11.8 (7.0-16.0); BILIRUBIN,TOTAL 0.6 mg/dL (0.3-1.0); BUN - UREA NITROGEN 32 mg/dL (7-25); CALCIUM SERUM 9.1 mg/dL (8.6-10.3); CARBON DIOXIDE 28.8 mEq/L (21.0-31.0); CHLORIDE 94 mEq/L (98-107); GLUCOSE 87 mg/dL (70-105); POTASSIUM SERUM 3.6 mEq/L (3.5-5.1); SGOT 23 U/L (13-39); SGPT/ALT 21 U/L (7-52); SODIUM SERUM 131 mEq/L (136-145); TOTAL PROTEIN,SERUM 8.9 gm/dL (6.0-8.3)
[2017-10-19 07:49] LABS: CREATININE - SERUM 5.2 mg/dL (0.7-1.3)
--- NOTE | 2017-10-19 08:11 | General Progress Note ---
Subjective - Review of Systems Service Date: 10/19/17 Subjective: 82 year old male admitted for low hemoglobin, ESRD on HD. Still refusing IV's. will order social worker psychiatric. psychiatry note appreciated. Objective - Results Result Diagrams: 10/19/17 06:05 10/19/17 06:05 Recent Labs: Laboratory Last Values WBC 5.5 Th/cmm (4.8-10.8) 10/19/17 06:05 RBC 3.13 Mil/cmm (3.80-5.80) L 10/19/17 06:05 Hgb 9.7 gm/dL (12-16) L 10/19/17 06:05 Hct 28.9 % (41.0-60) L 10/19/17 06:05 MCV 92.5 fl (80-99) 10/19/17 06:05 MCH 30.9 pg (27.0-31.0) 10/19/17 06:05 MCHC Differential 33.4 pg (28.0-36.0) 10/19/17 06:05 RDW 19.5 % (11.5-20.0) 10/19/17 06:05 Plt Count 277 Th/cmm (150-400) 10/19/17 06:05 MPV 6.8 fl 10/19/17 06:05 Neutrophils % 56.1 % (40.0-80.0) 10/19/17 06:05 Lymphocytes % 16.9 % (20.0-50.0) L 10/19/17 06:05 Monocytes % 8.9 % (2.0-10.0) 10/19/17 06:05 Eosinophils % 18.0 % (0.0-5.0) H 10/19/17 06:05 Basophils % 0.1 % (0.0-2.0) 10/19/17 06:05 PT 11.4 SECONDS (9.5-11.5) 10/17/17 09:55 INR 1.09 (0.5-1.4) 10/17/17 09:55 Sodium 131 mEq/L (136-145) L 10/19/17 06:05 Potassium 3.6 mEq/L (3.5-5.1) 10/19/17 06:05 Chloride 94 mEq/L (98-107) L 10/19/17 06:05 Carbon Dioxide 28.8 mEq/L (21.0-31.0) 10/19/17 06:05 Anion Gap 11.8 (7.0-16.0) 10/19/17 06:05 BUN 32 mg/dL (7-25) H 10/19/17 06:05 Creatinine 5.2 mg/dL (0.7-1.3) H* 10/19/17 06:05 Est GFR ( Amer) TNP 10/19/17 06:05 Est GFR (Non-Af Amer) TNP 10/19/17 06:05 BUN/Creatinine Ratio 6.2 10/19/17 06:05 Glucose 87 mg/dL (70-105) 10/19/17 06:05 Calcium 9.1 mg/dL (8.6-10.3) 10/19/17 06:05 Phosphorus 4.0 mg/dL (2.5-5.0) 10/19/17 06:05 Total Bilirubin 0.6 mg/dL (0.3-1.0) 10/19/17 06:05 AST 23 U/L (13-39) 10/19/17 06:05 ALT 21 U/L (7-52) 10/19/17 06:05 Alkaline Phosphatase 275 U/L (34-104) H 10/19/17 06:05 Total Protein 8.9 gm/dL (6.0-8.3) H 10/19/17 06:05 Albumin 3.2 gm/dL (4.2-5.5) L 10/19/17 06:05 Globulin 5.7 gm/dL 10/19/17 06:05 Albumin/Globulin Ratio 0.6 (1.0-1.8) L 10/19/17 06:05 Blood Type AB POSITIVE 10/17/17 09:55 Antibody Screen NEGATIVE 10/17/17 09:55 - Physical Exam Vitals and I&O: Vital Signs Temp 97.6 F 10/18/17 16:00 Pulse 83 10/18/17 18:14 Resp 18 10/18/17 20:00 BP 110/75 10/18/17 18:14 Pulse Ox 100 10/18/17 16:00 Intake & Output 10/18/17 10/19/17 10/19/17 18:59 06:59 18:59 Intake Total 300 50 Balance 300 50 Weight (lbs) 48.988 kg 48.988 kg Intake: Oral 300 50 Other: # Voids 1 # Bowel Movements 1 Active Medications: Current Medications Acetaminophen (Tylenol) 650 mg PO Q4HR PRN PRN Reason: Pain or Fever >101 Stop: 12/16/17 05:51 Acetaminophen/Hydrocodone Bitart ([place] 5mg/325mg) 1 tab PO Q6HR PRN PRN Reason: Pain (Severe) Stop: 12/16/17 05:51 Aspirin (Aspirin Chewable) 81 mg PO DAILY [facility] Stop: 12/16/17 08:59 Last Admin: 10/18/17 08:58 Dose: Not Given Bisacodyl (Dulcolax 10 Mg Supp) 10 mg RC DAILY PRN PRN Reason: Constipation Stop: 12/16/17 05:51 Calcium Carbonate (Tums) 500 mg PO Q6HR PRN PRN Reason: Heartburn Stop: 12/16/17 05:51 Clonidine HCl (Bcrzcrhc-Ucd-4) 1 patch TD QMON [facility] Stop: 12/20/17 05:51 Epoetin Satish (Epogen) 10,000 units SUBQ MoWeFr [facility] Stop: 12/18/17 12:32 Albumin Human (Albuminar 25%) 25 gm in 100 mls @ 50 mls/hr IV [facility] PRN PRN Reason: BP Support During HD Levofloxacin (Levaquin) 250 mg PO Q48H [facility] Stop: 12/18/17 20:59 Magnesium Hydroxide (Milk Of Magnesia) 30 ml PO HS PRN PRN Reason: Constipation Stop: 12/16/17 05:51 Metoprolol Tartrate (Lopressor) 25 mg PO BID [facility] Stop: 12/16/17 08:59 Last Admin: 10/18/17 18:14 Dose: 25 mg Miscellaneous (Vte Chemical Prophylaxis Screen/ Admission) 1 ea MC PRN PRN PRN Reason: PROTOCOL Stop: 12/16/17 08:59 Nitroglycerin (Nitro-Bid) 1 inch TP Q8HR [facility] Stop: 12/16/17 12:59 Last Admin: 10/19/17 06:22 Dose: Not Given Pantoprazole Sodium (Protonix) 40 mg PO DAILY [facility] Stop: 12/16/17 08:59 Last Admin: 10/18/17 08:58 Dose: Not Given Sevelamer Carbonate (Renvela) 2,400 mg PO TID [facility] Stop: 12/16/17 08:59 Last Admin: 10/18/17 22:22 Dose: Not Given Sodium Phosphate (Fleet Enema) 135 ml RC Q48HR PRN PRN Reason: Constipation Stop: 12/16/17 05:51 Vancomycin HCl (Vancomycin Oral) 250 mg PO QID [facility] Stop: 12/16/17 12:59 Last Admin: 10/19/17 03:11 Dose: Not Given Venlafaxine HCl (Effexor Xr) 37.5 mg PO DAILY [facility] PRN Reason: Protocol Stop: 12/16/17 08:59 Zolpidem Tartrate (Ambien) 5 mg PO HS PRN PRN Reason: Insomnia Stop: 12/16/17 05:51 Last Admin: 10/17/17 23:54 Dose: 5 mg General: Alert HEENT: Atraumatic, PERRLA Neck: Supple Cardiovascular: Regular rate, Normal S1, Normal S2 Lungs: Clear to auscultation Abdomen: Bowel sounds, Soft Extremities: no Clubbing, no Cyanosis, no Edema Neurological: Normal gait Assessment/Plan - Assessment Assessment: Anemia -- repeat CBC ESRD on HD -- Renal consult, repeat BMP PNA ... will order chest xray sepsis ... order CBC anxiety/depression .. psychiatric consult COPD stable Dementia C- diff Psychosis ... per psychiatry DM ... accucheck CHF HTN ... continue Clonidine, Metoprolol - Plan Plan: see orders
[2017-10-19] MEDS: Aspirin 81mg Chewable Tab PO SCH (09:18)
[2017-10-19] MEDS: Pantoprazole 40 mg EC Tab PO SCH (09:18)
--- NOTE | 2017-10-19 12:22 | Infectious Disease Prog Note ---
Infectious Disease Subjective - Review of Systems Service Date: 10/19/17 Subjective: There is no new change. Infectious Disease Objective - Results Result Diagrams: 10/19/17 06:05 10/19/17 06:05 Recent Labs: Laboratory Last Values WBC 5.5 Th/cmm (4.8-10.8) 10/19/17 06:05 RBC 3.13 Mil/cmm (3.80-5.80) L 10/19/17 06:05 Hgb 9.7 gm/dL (12-16) L 10/19/17 06:05 Hct 28.9 % (41.0-60) L 10/19/17 06:05 MCV 92.5 fl (80-99) 10/19/17 06:05 MCH 30.9 pg (27.0-31.0) 10/19/17 06:05 MCHC Differential 33.4 pg (28.0-36.0) 10/19/17 06:05 RDW 19.5 % (11.5-20.0) 10/19/17 06:05 Plt Count 277 Th/cmm (150-400) 10/19/17 06:05 MPV 6.8 fl 10/19/17 06:05 Neutrophils % 56.1 % (40.0-80.0) 10/19/17 06:05 Lymphocytes % 16.9 % (20.0-50.0) L 10/19/17 06:05 Monocytes % 8.9 % (2.0-10.0) 10/19/17 06:05 Eosinophils % 18.0 % (0.0-5.0) H 10/19/17 06:05 Basophils % 0.1 % (0.0-2.0) 10/19/17 06:05 PT 11.4 SECONDS (9.5-11.5) 10/17/17 09:55 INR 1.09 (0.5-1.4) 10/17/17 09:55 Sodium 131 mEq/L (136-145) L 10/19/17 06:05 Potassium 3.6 mEq/L (3.5-5.1) 10/19/17 06:05 Chloride 94 mEq/L (98-107) L 10/19/17 06:05 Carbon Dioxide 28.8 mEq/L (21.0-31.0) 10/19/17 06:05 Anion Gap 11.8 (7.0-16.0) 10/19/17 06:05 BUN 32 mg/dL (7-25) H 10/19/17 06:05 Creatinine 5.2 mg/dL (0.7-1.3) H* 10/19/17 06:05 Est GFR ( Amer) TNP 10/19/17 06:05 Est GFR (Non-Af Amer) TNP 10/19/17 06:05 BUN/Creatinine Ratio 6.2 10/19/17 06:05 Glucose 87 mg/dL (70-105) 10/19/17 06:05 Calcium 9.1 mg/dL (8.6-10.3) 10/19/17 06:05 Phosphorus 4.0 mg/dL (2.5-5.0) 10/19/17 06:05 Total Bilirubin 0.6 mg/dL (0.3-1.0) 10/19/17 06:05 AST 23 U/L (13-39) 10/19/17 06:05 ALT 21 U/L (7-52) 10/19/17 06:05 Alkaline Phosphatase 275 U/L (34-104) H 10/19/17 06:05 Total Protein 8.9 gm/dL (6.0-8.3) H 10/19/17 06:05 Albumin 3.2 gm/dL (4.2-5.5) L 10/19/17 06:05 Globulin 5.7 gm/dL 10/19/17 06:05 Albumin/Globulin Ratio 0.6 (1.0-1.8) L 10/19/17 06:05 Blood Type AB POSITIVE 10/17/17 09:55 Antibody Screen NEGATIVE 10/17/17 09:55 - Physical Exam Vitals and I&O: Vital Signs Temp 98.4 F 10/19/17 11:34 Pulse 69 10/19/17 11:34 Resp 18 10/19/17 11:34 BP 185/69 10/19/17 11:34 Pulse Ox 98 10/19/17 11:34 Intake & Output 10/18/17 10/19/17 10/19/17 18:59 06:59 18:59 Intake Total 300 50 Balance 300 50 Weight (lbs) 48.988 kg 48.988 kg Intake: Oral 300 50 Other: # Voids 1 # Bowel Movements 1 Active Medications: Current Medications Acetaminophen (Tylenol) 650 mg PO Q4HR PRN PRN Reason: Pain or Fever >101 Stop: 12/16/17 05:51 Acetaminophen/Hydrocodone Bitart ([place] 5mg/325mg) 1 tab PO Q6HR PRN PRN Reason: Pain (Severe) Stop: 12/16/17 05:51 Aspirin (Aspirin Chewable) 81 mg PO DAILY [facility] Stop: 12/16/17 08:59 Last Admin: 10/19/17 09:18 Dose: 81 mg Bisacodyl (Dulcolax 10 Mg Supp) 10 mg RC DAILY PRN PRN Reason: Constipation Stop: 12/16/17 05:51 Calcium Carbonate (Tums) 500 mg PO Q6HR PRN PRN Reason: Heartburn Stop: 12/16/17 05:51 Clonidine HCl (Ekrjyuyi-Xzr-1) 1 patch TD QMON [facility] Stop: 12/20/17 05:51 Epoetin Satish (Epogen) 10,000 units SUBQ MoWeFr [facility] Stop: 12/18/17 12:32 Albumin Human (Albuminar 25%) 25 gm in 100 mls @ 50 mls/hr IV ZULY PRN PRN Reason: BP Support During HD Levofloxacin (Levaquin) 250 mg PO Q48H [facility] Stop: 12/18/17 20:59 Magnesium Hydroxide (Milk Of Magnesia) 30 ml PO HS PRN PRN Reason: Constipation Stop: 12/16/17 05:51 Metoprolol Tartrate (Lopressor) 25 mg PO BID [facility] Stop: 12/16/17 08:59 Last Admin: 10/19/17 09:26 Dose: Not Given Miscellaneous (Vte Chemical Prophylaxis Screen/ Admission) 1 ea MC PRN PRN PRN Reason: PROTOCOL Stop: 12/16/17 08:59 Nitroglycerin (Nitro-Bid) 1 inch TP Q8HR [facility] Stop: 12/16/17 12:59 Last Admin: 10/19/17 06:22 Dose: Not Given Pantoprazole Sodium (Protonix) 40 mg PO DAILY [facility] Stop: 12/16/17 08:59 Last Admin: 10/19/17 09:18 Dose: 40 mg Sevelamer Carbonate (Renvela) 2,400 mg PO TID [facility] Stop: 12/16/17 08:59 Last Admin: 10/19/17 09:18 Dose: 2,400 mg Sodium Phosphate (Fleet Enema) 135 ml RC Q48HR PRN PRN Reason: Constipation Stop: 12/16/17 05:51 Vancomycin HCl (Vancomycin Oral) 250 mg PO QID [facility] Stop: 12/16/17 12:59 Last Admin: 10/19/17 09:22 Dose: 250 mg Venlafaxine HCl (Effexor Xr) 37.5 mg PO DAILY [facility] PRN Reason: Protocol Stop: 12/16/17 08:59 Zolpidem Tartrate (Ambien) 5 mg PO HS PRN PRN Reason: Insomnia Stop: 12/16/17 05:51 Last Admin: 10/17/17 23:54 Dose: 5 mg General: no acute distress, well developed, well nourished HEENT: atraumatic, normocephalic, PERRLA, EOMI, moist mucous membrane Neck: supple, no thyromegaly Cardiovascular: S1S2, regular Lungs: clear to auscultation bilaterally, clear to percussion Abdomen: soft, no tender, no distended, no mass, no rebound, no drain Extremities: no cyanosis, no clubbing, no edema Neurological: awake, alert, oriented Skin: intact Infectious Disease Assmt/Plan - Assessment Assessment: 1. Pneumonia versus CHF, more likely CHF. 2. CKD 5 on HD. 3. Protein calorie malnutrition. 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 5. anxiety/depression 6. COPD. 7. Dementia. 8. History of C- diff. 9. ESRD. 10. Anemia. 11. Psychosis. 12. DM. 13. CHF. 14. HTN - Plan Plan: Vancomycin and Levaquin.
--- NOTE | 2017-10-19 19:56 | Progress Notes ---
DATE: 10/19/2017 Case was discussed with staff of the patient. The patient continues to be selectively mute, continues to be unpredictable, impulsive. Continues to have poor insight. He is here because of low hemoglobin. If he continues to be acting out, [facility] and so far no side effects with the medication and the patient is unable to give information much and unable to cooperate and he with a history of dementia. Thank you very much for allowing me to participate in the care of this most interesting gentleman. JOB# [id number]
[2017-10-20] MEDS: NITROGLYCERIN OINT 2% 1 INCH PACKET TP SCH ×3 (06:16→22:26)
[2017-10-20 06:32] LABS: % BASOPHILS 0.3 % (0.0-2.0); % EOSINOPHILS 15.2 % (0.0-5.0); % LYMPHOCYTES 19.5 % (20.0-50.0); % MONOCYTES 10.4 % (2.0-10.0); % NEUTROPHILS 54.6 % (40.0-80.0); HEMATOCRIT 28.1 % (41.0-60); HEMOGLOBIN 9.4 gm/dL (12-16); LYMPHOCYTE ABSOLUTE 1.3 Th/cmm (1.5-3.0); MEAN CELL VOLUME 92.5 fl (80-99); MEAN CORPUSCULAR HGB CONC 33.5 pg (28.0-36.0); MEAN PLATELET VOLUME 6.6 fl; MONOCYTE ABSOLUTE 0.7 Th/cmm (0.3-1.0); NEUTROPHILE ABSOLUTE 3.6 Th/cmm (1.8-8.0); PLATELET COUNT 273 Th/cmm (150-400); RED BLOOD COUNT 3.03 Mil/cmm (3.80-5.80); RED CELL DISTRIBUTION WIDTH 19.7 % (11.5-20.0); WHITE BLOOD COUNT 6.6 Th/cmm (4.8-10.8)
[2017-10-20 06:55] LABS: ALB/GLOB RATIO 0.6 (1.0-1.8); ALBUMIN 3.2 gm/dL (4.2-5.5); ALKALINE PHOSPHATASE 273 U/L (34-104); ANION GAP 10.7 (7.0-16.0); BILIRUBIN,TOTAL 0.7 mg/dL (0.3-1.0); BUN - UREA NITROGEN 18 mg/dL (7-25); CALCIUM SERUM 8.9 mg/dL (8.6-10.3); CARBON DIOXIDE 30.7 mEq/L (21.0-31.0); CHLORIDE 95 mEq/L (98-107); CREATININE - SERUM 3.7 mg/dL (0.7-1.3); GLUCOSE 84 mg/dL (70-105); POTASSIUM SERUM 3.4 mEq/L (3.5-5.1); SGOT 21 U/L (13-39); SGPT/ALT 20 U/L (7-52); SODIUM SERUM 133 mEq/L (136-145)
--- NOTE | 2017-10-20 08:15 | General Progress Note ---
Subjective - Review of Systems Service Date: 10/20/17 Subjective: 82 year old male admitted for low hemoglobin, ESRD on HD. Still refusing IV's. will order social service liaison. psychiatry note appreciated. patient still confused. on respiradol now. BP not well controlled. Objective - Results Result Diagrams: 10/20/17 06:00 10/20/17 06:00 Recent Labs: Laboratory Last Values WBC 6.6 Th/cmm (4.8-10.8) 10/20/17 06:00 RBC 3.03 Mil/cmm (3.80-5.80) L 10/20/17 06:00 Hgb 9.4 gm/dL (12-16) L 10/20/17 06:00 Hct 28.1 % (41.0-60) L 10/20/17 06:00 MCV 92.5 fl (80-99) 10/20/17 06:00 MCH 31.0 pg (27.0-31.0) 10/20/17 06:00 MCHC Differential 33.5 pg (28.0-36.0) 10/20/17 06:00 RDW 19.7 % (11.5-20.0) 10/20/17 06:00 Plt Count 273 Th/cmm (150-400) 10/20/17 06:00 MPV 6.6 fl 10/20/17 06:00 Neutrophils % 54.6 % (40.0-80.0) 10/20/17 06:00 Lymphocytes % 19.5 % (20.0-50.0) L 10/20/17 06:00 Monocytes % 10.4 % (2.0-10.0) H 10/20/17 06:00 Eosinophils % 15.2 % (0.0-5.0) H 10/20/17 06:00 Basophils % 0.3 % (0.0-2.0) 10/20/17 06:00 PT 11.4 SECONDS (9.5-11.5) 10/17/17 09:55 INR 1.09 (0.5-1.4) 10/17/17 09:55 Sodium 133 mEq/L (136-145) L 10/20/17 06:00 Potassium 3.4 mEq/L (3.5-5.1) L 10/20/17 06:00 Chloride 95 mEq/L (98-107) L 10/20/17 06:00 Carbon Dioxide 30.7 mEq/L (21.0-31.0) 10/20/17 06:00 Anion Gap 10.7 (7.0-16.0) 10/20/17 06:00 BUN 18 mg/dL (7-25) 10/20/17 06:00 Creatinine 3.7 mg/dL (0.7-1.3) H 10/20/17 06:00 Est GFR ( Amer) TNP 10/20/17 06:00 Est GFR (Non-Af Amer) TNP 10/20/17 06:00 BUN/Creatinine Ratio 4.9 10/20/17 06:00 Glucose 84 mg/dL (70-105) 10/20/17 06:00 Calcium 8.9 mg/dL (8.6-10.3) 10/20/17 06:00 Phosphorus 4.0 mg/dL (2.5-5.0) 10/19/17 06:05 Total Bilirubin 0.7 mg/dL (0.3-1.0) 10/20/17 06:00 AST 21 U/L (13-39) 10/20/17 06:00 ALT 20 U/L (7-52) 10/20/17 06:00 Alkaline Phosphatase 273 U/L (34-104) H 10/20/17 06:00 Total Protein 9.0 gm/dL (6.0-8.3) H 10/20/17 06:00 Albumin 3.2 gm/dL (4.2-5.5) L 10/20/17 06:00 Globulin 5.8 gm/dL 10/20/17 06:00 Albumin/Globulin Ratio 0.6 (1.0-1.8) L 10/20/17 06:00 TSH 3.68 uIU/ml (0.34-5.60) 10/20/17 06:00 Blood Type AB POSITIVE 10/17/17 09:55 Antibody Screen NEGATIVE 10/17/17 09:55 - Physical Exam Vitals and I&O: Vital Signs Temp 97.9 F 10/19/17 20:00 Pulse 69 10/19/17 21:57 Resp 18 10/19/17 20:00 BP 185/69 10/19/17 21:57 Pulse Ox 18 10/19/17 20:00 Intake & Output 10/19/17 10/20/17 10/20/17 18:59 06:59 18:59 Intake Total 450 50 Output Total 2100 Balance -1650 50 Weight (lbs) 48.988 kg 48.988 kg Intake: Oral 450 50 Output: Hemodialysis 2100 Other: # Voids 2 0 Active Medications: Current Medications Acetaminophen (Tylenol) 650 mg PO Q4HR PRN PRN Reason: Pain or Fever >101 Stop: 12/16/17 05:51 Acetaminophen/Hydrocodone Bitart ([place] 5mg/325mg) 1 tab PO Q6HR PRN PRN Reason: Pain (Severe) Stop: 12/16/17 05:51 Aspirin (Aspirin Chewable) 81 mg PO DAILY [facility] Stop: 12/16/17 08:59 Last Admin: 10/19/17 09:18 Dose: 81 mg Bisacodyl (Dulcolax 10 Mg Supp) 10 mg RC DAILY PRN PRN Reason: Constipation Stop: 12/16/17 05:51 Calcium Carbonate (Tums) 500 mg PO Q6HR PRN PRN Reason: Heartburn Stop: 12/16/17 05:51 Clonidine HCl (Bfujgrjq-Hlm-4) 1 patch TD QMON [facility] Stop: 12/20/17 05:51 Epoetin Satish (Epogen) 10,000 units SUBQ MoWeFr [facility] Stop: 12/18/17 12:32 Albumin Human (Albuminar 25%) 25 gm in 100 mls @ 50 mls/hr IV ZULY PRN PRN Reason: BP Support During HD Levofloxacin (Levaquin) 250 mg PO Q48H [facility] Stop: 12/18/17 20:59 Last Admin: 10/19/17 21:57 Dose: Not Given Magnesium Hydroxide (Milk Of Magnesia) 30 ml PO HS PRN PRN Reason: Constipation Stop: 12/16/17 05:51 Metoprolol Tartrate (Lopressor) 25 mg PO BID [facility] Stop: 12/16/17 08:59 Last Admin: 10/19/17 17:15 Dose: Not Given Miscellaneous (Vte Chemical Prophylaxis Screen/ Admission) 1 ea MC PRN PRN PRN Reason: PROTOCOL Stop: 12/16/17 08:59 Nitroglycerin (Nitro-Bid) 1 inch TP Q8HR [facility] Stop: 12/16/17 12:59 Last Admin: 10/20/17 06:16 Dose: Not Given Pantoprazole Sodium (Protonix) 40 mg PO DAILY [facility] Stop: 12/16/17 08:59 Last Admin: 10/19/17 09:18 Dose: 40 mg Sevelamer Carbonate (Renvela) 2,400 mg PO TID [facility] Stop: 12/16/17 08:59 Last Admin: 10/19/17 21:58 Dose: Not Given Sodium Phosphate (Fleet Enema) 135 ml RC Q48HR PRN PRN Reason: Constipation Stop: 12/16/17 05:51 Vancomycin HCl (Vancomycin Oral) 250 mg PO QID [facility] Stop: 12/16/17 12:59 Last Admin: 10/19/17 21:58 Dose: Not Given Venlafaxine HCl (Effexor Xr) 37.5 mg PO DAILY [facility] PRN Reason: Protocol Stop: 12/16/17 08:59 Zolpidem Tartrate (Ambien) 5 mg PO HS PRN PRN Reason: Insomnia Stop: 12/16/17 05:51 Last Admin: 10/20/17 01:05 Dose: 5 mg General: Alert HEENT: Atraumatic, PERRLA Neck: Supple Cardiovascular: Regular rate, Normal S1, Normal S2 Lungs: Clear to auscultation Abdomen: Bowel sounds, Soft Extremities: no Clubbing, no Cyanosis, no Edema Neurological: Normal gait Assessment/Plan - Assessment Assessment: Anemia -- repeat CBC ESRD on HD -- Renal consult, repeat BMP PNA ... will order chest xray sepsis ... order CBC anxiety/depression .. psychiatric consult COPD stable Dementia C- diff Psychosis ... per psychiatry DM ... accucheck CHF HTN elevated... continue Clonidine, Metoprolol. will order cardiology consult...Dr. Matthew Parikh - Plan Plan: see orders
--- NOTE | 2017-10-20 08:19 | Progress Notes ---
DATE: 10/19/2017 RENAL PROGRESS NOTE LOCATION: [facility], room #17, bed 1. The patient is conscious, alert. The patient is DNR. According to nursing staff no complaint of vomiting, diarrhea, or shortness of breath. The patient's last hemodialysis was on Thursday. The patient is tolerating food well. PHYSICAL EXAMINATION: VITAL SIGNS: Temperature 98.4, pulse 69, blood pressure 185/69. Intake only 300-400 mL, ultrafiltration 2100 today. HEENT: Head, normocephalic. HEART: Regular. LUNGS: Good air entry, clear. ABDOMEN: Soft. EXTREMITIES: No edema. LABORATORY DATA: Hemoglobin 9.7, eosinophil count 18. Sodium 131, potassium 3.6, which is improved from 2.8 yesterday, chloride 94, CO2 of 28, BUN 32, creatinine 5.2. Phosphorus normal at 4. Albumin 3.2. ASSESSMENT: 1. Chronic kidney disease 5, on chronic hemodialysis Thursday, Thursday and Thursday. 2. Hyponatremia. 3. Hypokalemia. 4. Anemia. 5. Hypertension. 6. Psychosis. 7. Eosinophil urea. 8. Chronic obstructive pulmonary disease. 9. Dementia. 10. History of C. diff. 11. Diabetes mellitus. JOB# [id number]
--- NOTE | 2017-10-20 09:08 | Progress Notes ---
DATE: ADDENDUM LOCATION: [facility], room 17, bed 1. PLAN: 1. Hemodialysis today. 2. Check BMP, TSH in the morning. 3. If the patient is a persistent hyponatremia, then increase conductivity. 4. Use high potassium bath since patient has history of hypokalemia. 5. Check iron, iron levels. 6. Start the patient on Epogen if there is no contraindication. 7. If iron is low, we will start patient on IV iron. Repeat chest x-ray and CBC in about 2-3 days. Discussed with nursing staff. JOB# [id number]
[2017-10-20] MEDS: Vancomycin HCL 250 mg /10mL UDC PO SCH ×4 (09:49→22:27)
[2017-10-20] MEDS: Aspirin 81mg Chewable Tab PO SCH (09:49)
[2017-10-20] MEDS: Pantoprazole 40 mg EC Tab PO SCH (09:49)
[2017-10-20] MEDS: Epoetin Alfa 20000 Units/mL Vial SUBQ SCH (11:19)
[2017-10-20] MEDS ORDERED: Venlafaxine HCl ER 37.5 mg Tab PO ONE (18:00)
--- NOTE | 2017-10-20 21:17 | Progress Notes ---
DATE: 10/20/2017 Case was discussed with staff of the patient. The patient so far seems to be calmer. He is sleeping better, continues to be uncooperative at times. He is on Effexor with no side effects, no sedation, and no nausea. The patient may need to be transferred to [facility] if he continues to have episodes of acting out. Thank you very much for allowing me to participate in the care of this most interesting gentleman. JOB# [id number]
[2017-10-21] MEDS ORDERED: cloNIDine 0.2 mg/24 hr Tdm TD SCH (05:52)
--- NOTE | 2017-10-21 05:55 | Consultation ---
DATE OF CONSULTATION: 10/20/[address] Sy. HISTORY OF PRESENT ILLNESS: This is an 82-year-old male patient who has psychosis. The patient was brought to the hospital. The patient has uncontrolled hypertension and hence, cardiac consult is requested. The patient also has a BNP level more than 5000. PAST MEDICAL HISTORY: Congestive heart failure; diabetes mellitus type 2; diabetic CKD, stage V; end-stage renal disease, on dialysis; iron-deficiency anemia; psychosis; dementia; left eye blindness; and chronic obstructive pulmonary disease. FAMILY HISTORY: Unremarkable. SOCIAL HISTORY: No history of smoking, alcohol abuse. ALLERGIES: None. PHYSICAL EXAMINATION: VITAL SIGNS: Blood pressure 200/100, pulse 90, and respirations 28. HEAD: Normocephalic. No lumps or bumps. EYES: Pupils equal, reactive to light. Fundi show AV nicking, sclerae white, conjunctivae pink. NECK: Carotid 2+. Normal upstroke. JVD 10 cm above sternal angle. Thyroid not palpable. Lymph nodes not palpable. CHEST: Shows increased AP diameter. No kyphosis, scoliosis. LUNGS: Bilateral bronchovesicular breath sounds. Bilateral rales. Decreased breath sounds both the bases. HEART: PMI sixth intercostal space with lateral to midclavicular line. S1, S2, S3, S4, soft systolic murmur. ABDOMEN: Soft. Liver, spleen not palpable. No organomegaly. Bowel sounds active. NEUROLOGIC: No focal neurological deficit. EXTREMITIES: Peripheral pulses 2+. No pedal edema. CLINICAL IMPRESSION: Congestive heart failure; diastolic dysfunction, acute; diabetes mellitus type 2; diabetic chronic kidney disease, stage V; end-stage renal disease, on dialysis; accelerated hypertension; iron deficiency anemia; psychosis; dementia; left eye blindness; chronic obstructive pulmonary disease; and benign prostatic hypertrophy. PLAN: The patient agreed to taking medications. We will get a TTS patch to control the blood pressure. The patient is not taking any medication. JOB# [id number]
[2017-10-21] MEDS: NITROGLYCERIN OINT 2% 1 INCH PACKET TP SCH ×2 (07:29→15:00)
[2017-10-21 08:11] LABS: IRON LC 47 ug/dL (38-169); TIBC (LC) 214 ug/dL (250-450); UIBC 167 ug/dL (111-343)
--- NOTE | 2017-10-21 08:39 | General Progress Note ---
Subjective - Review of Systems Service Date: 10/21/17 Subjective: 82 year old male admitted for low hemoglobin, ESRD on HD. Still refusing IV's. patient still confused. on respiradol now. BP not well controlled. Objective - Results Result Diagrams: 10/20/17 06:00 10/20/17 06:00 Recent Labs: Laboratory Last Values WBC 6.6 Th/cmm (4.8-10.8) 10/20/17 06:00 RBC 3.03 Mil/cmm (3.80-5.80) L 10/20/17 06:00 Hgb 9.4 gm/dL (12-16) L 10/20/17 06:00 Hct 28.1 % (41.0-60) L 10/20/17 06:00 MCV 92.5 fl (80-99) 10/20/17 06:00 MCH 31.0 pg (27.0-31.0) 10/20/17 06:00 MCHC Differential 33.5 pg (28.0-36.0) 10/20/17 06:00 RDW 19.7 % (11.5-20.0) 10/20/17 06:00 Plt Count 273 Th/cmm (150-400) 10/20/17 06:00 MPV 6.6 fl 10/20/17 06:00 Neutrophils % 54.6 % (40.0-80.0) 10/20/17 06:00 Lymphocytes % 19.5 % (20.0-50.0) L 10/20/17 06:00 Monocytes % 10.4 % (2.0-10.0) H 10/20/17 06:00 Eosinophils % 15.2 % (0.0-5.0) H 10/20/17 06:00 Basophils % 0.3 % (0.0-2.0) 10/20/17 06:00 PT 11.4 SECONDS (9.5-11.5) 10/17/17 09:55 INR 1.09 (0.5-1.4) 10/17/17 09:55 Sodium 133 mEq/L (136-145) L 10/20/17 06:00 Potassium 3.4 mEq/L (3.5-5.1) L 10/20/17 06:00 Chloride 95 mEq/L (98-107) L 10/20/17 06:00 Carbon Dioxide 30.7 mEq/L (21.0-31.0) 10/20/17 06:00 Anion Gap 10.7 (7.0-16.0) 10/20/17 06:00 BUN 18 mg/dL (7-25) 10/20/17 06:00 Creatinine 3.7 mg/dL (0.7-1.3) H 10/20/17 06:00 Est GFR ( Amer) TNP 10/20/17 06:00 Est GFR (Non-Af Amer) TNP 10/20/17 06:00 BUN/Creatinine Ratio 4.9 10/20/17 06:00 Glucose 84 mg/dL (70-105) 10/20/17 06:00 Calcium 8.9 mg/dL (8.6-10.3) 10/20/17 06:00 Phosphorus 4.0 mg/dL (2.5-5.0) 10/19/17 06:05 Iron 47 ug/dL (38-169) 10/20/17 06:00 TIBC 214 ug/dL (250-450) L 10/20/17 06:00 Iron Saturation 22 % (15-55) 10/20/17 06:00 Unsaturated IBC 167 ug/dL (111-343) 10/20/17 06:00 Total Bilirubin 0.7 mg/dL (0.3-1.0) 10/20/17 06:00 AST 21 U/L (13-39) 10/20/17 06:00 ALT 20 U/L (7-52) 10/20/17 06:00 Alkaline Phosphatase 273 U/L (34-104) H 10/20/17 06:00 B-Natriuretic Peptide > 5000.0 pg/mL (5.0-100.0) H 10/20/17 06:00 Total Protein 9.0 gm/dL (6.0-8.3) H 10/20/17 06:00 Albumin 3.2 gm/dL (4.2-5.5) L 10/20/17 06:00 Globulin 5.8 gm/dL 10/20/17 06:00 Albumin/Globulin Ratio 0.6 (1.0-1.8) L 10/20/17 06:00 TSH 3.68 uIU/ml (0.34-5.60) 10/20/17 06:00 Blood Type AB POSITIVE 10/17/17 09:55 Antibody Screen NEGATIVE 10/17/17 09:55 - Physical Exam Vitals and I&O: Vital Signs Temp 96.9 F 10/20/17 15:00 Pulse 88 10/21/17 07:35 Resp 18 10/21/17 03:00 BP 188/98 10/21/17 07:35 Pulse Ox 99 10/21/17 03:00 Intake & Output 10/20/17 10/21/17 10/21/17 18:59 06:59 18:59 Intake Total 50 25 Balance 50 25 Weight (lbs) 48.988 kg 48.988 kg Intake: Oral 50 25 Other: # Voids 0 0 Active Medications: Current Medications Acetaminophen (Tylenol) 650 mg PO Q4HR PRN PRN Reason: Pain or Fever >101 Stop: 12/16/17 05:51 Acetaminophen/Hydrocodone Bitart ([place] 5mg/325mg) 1 tab PO Q6HR PRN PRN Reason: Pain (Severe) Stop: 12/16/17 05:51 Aspirin (Aspirin Chewable) 81 mg PO DAILY [facility] Stop: 12/16/17 08:59 Last Admin: 10/20/17 09:49 Dose: 81 mg Bisacodyl (Dulcolax 10 Mg Supp) 10 mg RC DAILY PRN PRN Reason: Constipation Stop: 12/16/17 05:51 Calcium Carbonate (Tums) 500 mg PO Q6HR PRN PRN Reason: Heartburn Stop: 12/16/17 05:51 Clonidine HCl (Bjtrqzop-Ect-3) 1 patch TD QMON [facility] Stop: 12/20/17 05:51 Last Admin: 10/21/17 07:35 Dose: 1 patch Epoetin Satish (Epogen) 10,000 units SUBQ MoWeFr [facility] Stop: 12/18/17 12:32 Last Admin: 10/20/17 11:19 Dose: Not Given Albumin Human (Albuminar 25%) 25 gm in 100 mls @ 50 mls/hr IV ZULY PRN PRN Reason: BP Support During HD Levofloxacin (Levaquin) 250 mg PO Q48H [facility] Stop: 12/18/17 20:59 Last Admin: 10/19/17 21:57 Dose: Not Given Magnesium Hydroxide (Milk Of Magnesia) 30 ml PO HS PRN PRN Reason: Constipation Stop: 12/16/17 05:51 Metoprolol Tartrate (Lopressor) 25 mg PO BID [facility] Stop: 12/16/17 08:59 Last Admin: 10/20/17 17:02 Dose: Not Given Miscellaneous (Vte Chemical Prophylaxis Screen/ Admission) 1 ea PRN PRN PRN Reason: PROTOCOL Stop: 12/16/17 08:59 Miscellaneous (Clinical Monitoring) 1 ea DAILY PRN PRN Reason: RENAL Stop: 12/19/17 17:47 Nitroglycerin (Nitro-Bid) 1 inch TP Q8HR [facility] Stop: 12/16/17 12:59 Last Admin: 10/21/17 07:29 Dose: Not Given Pantoprazole Sodium (Protonix) 40 mg PO DAILY [facility] Stop: 12/16/17 08:59 Last Admin: 10/20/17 09:49 Dose: 40 mg Sevelamer Carbonate (Renvela) 2,400 mg PO TID [facility] Stop: 12/16/17 08:59 Last Admin: 10/20/17 22:27 Dose: Not Given Sodium Phosphate (Fleet Enema) 135 ml RC Q48HR PRN PRN Reason: Constipation Stop: 12/16/17 05:51 Vancomycin HCl (Vancomycin Oral) 250 mg PO QID [facility] Stop: 12/16/17 12:59 Last Admin: 10/20/17 22:27 Dose: 250 mg Venlafaxine HCl (Effexor Xr) 37.5 mg PO DAILY [facility] PRN Reason: Protocol Stop: 12/16/17 08:59 Zolpidem Tartrate (Ambien) 5 mg PO HS PRN PRN Reason: Insomnia Stop: 12/16/17 05:51 Last Admin: 10/20/17 01:05 Dose: 5 mg General: Alert HEENT: Atraumatic, PERRLA Neck: Supple Cardiovascular: Regular rate, Normal S1, Normal S2 Lungs: Clear to auscultation Abdomen: Bowel sounds, Soft Extremities: no Clubbing, no Cyanosis, no Edema Neurological: Normal gait Assessment/Plan - Assessment Assessment: Anemia -- repeat CBC ESRD on HD -- Renal consult, repeat BMP PNA ... will order chest xray sepsis ... order CBC anxiety/depression .. psychiatric consult COPD stable Dementia C- diff Psychosis ... per psychiatry DM ... accucheck CHF ... ECHO pending, cardiac consult, HTN elevated... continue Clonidine, Metoprolol. will order cardiology consult...Dr. Matthew Parikh - Plan Plan: see orders
[2017-10-21 09:54] LABS: % EOSINOPHILS 16.6 % (0.0-5.0); % LYMPHOCYTES 15.8 % (20.0-50.0); % MONOCYTES 3.8 % (2.0-10.0); % NEUTROPHILS 62.8 % (40.0-80.0); EOSINOPHILE ABSOLUTE 0.7 Th/cmm (0.1-0.4); HEMOGLOBIN 8.4 gm/dL (12-16); LYMPHOCYTE ABSOLUTE 0.6 Th/cmm (1.5-3.0); MEAN CELL VOLUME 92.3 fl (80-99); MEAN CORPUSCULAR HEMOGLOBIN 30.9 pg (27.0-31.0); MEAN CORPUSCULAR HGB CONC 33.5 pg (28.0-36.0); MEAN PLATELET VOLUME 6.6 fl; MONOCYTE ABSOLUTE 0.2 Th/cmm (0.3-1.0); NEUTROPHILE ABSOLUTE 2.6 Th/cmm (1.8-8.0); RED BLOOD COUNT 2.73 Mil/cmm (3.80-5.80); RED CELL DISTRIBUTION WIDTH 19.5 % (11.5-20.0)
[2017-10-21 09:59] LABS: HEMATOCRIT 25.2 % (41.0-60); PLATELET COUNT 203 Th/cmm (150-400); WHITE BLOOD COUNT 4.1 Th/cmm (4.8-10.8)
[2017-10-21 10:56] LABS: ALB/GLOB RATIO 0.6 (1.0-1.8); ALBUMIN 2.9 gm/dL (4.2-5.5); ALKALINE PHOSPHATASE 228 U/L (34-104); ANION GAP 12.3 (7.0-16.0); BILIRUBIN,TOTAL 0.7 mg/dL (0.3-1.0); BUN - UREA NITROGEN 29 mg/dL (7-25); CALCIUM SERUM 8.5 mg/dL (8.6-10.3); CARBON DIOXIDE 26.9 mEq/L (21.0-31.0); CHLORIDE 95 mEq/L (98-107); GLUCOSE 152 mg/dL (70-105); POTASSIUM SERUM 3.2 mEq/L (3.5-5.1); SGOT 20 U/L (13-39); SGPT/ALT 17 U/L (7-52); SODIUM SERUM 131 mEq/L (136-145); TOTAL PROTEIN,SERUM 8.1 gm/dL (6.0-8.3)
[2017-10-21 11:09] LABS: CREATININE - SERUM 4.7 mg/dL (0.7-1.3)
[2017-10-21] MEDS: Pantoprazole 40 mg EC Tab PO SCH (11:09)
[2017-10-21] MEDS: Aspirin 81mg Chewable Tab PO SCH (11:09)
[2017-10-21] MEDS: Vancomycin HCL 250 mg /10mL UDC PO SCH ×2 (11:10→14:59)
--- NOTE | 2017-10-21 12:17 | Progress Notes ---
DATE: 10/20/2017 LOCATION: [facility], room #17 bed A. The patient had dialysis yesterday, tolerated well. OBJECTIVE: VITAL SIGNS: Temperature 96.9, pulse 61, blood pressure 182/80. Yesterday's intake 450+ ultrafiltration output 2100. HEART: Regular. LUNGS: Good air entry. ABDOMEN: Soft. LABORATORY DATA: Hemoglobin 9.4, WBC 6.6, platelet count 273. Sodium 133, potassium 3.4, chloride 95, creatinine 3.7. BNP more than 5000. Albumin 3.2. TSH normal. ASSESSMENT: 1. Chronic kidney disease 5, on chronic hemodialysis Thursday, Thursday, and Thursday. 2. Hyponatremia. 3. Anemia. 4. Hypertension. 5. Chronic obstructive pulmonary disease. 6. Dementia. PLAN: Dialysis will be done tomorrow. We will use high sodium higher conductivity due to hyponatremia. Continue other treatment. JOB# [id number]
--- NOTE | 2017-10-21 13:07 | General Progress Note ---
Subjective - Review of Systems Service Date: 10/21/17 Subjective: awake, confused, completed dialysis today Objective - Results Result Diagrams: 10/21/17 09:40 10/21/17 09:40 Recent Labs: Laboratory Last Values WBC 4.1 Th/cmm (4.8-10.8) L D 10/21/17 09:40 RBC 2.73 Mil/cmm (3.80-5.80) L 10/21/17 09:40 Hgb 8.4 gm/dL (12-16) L 10/21/17 09:40 Hct 25.2 % (41.0-60) L D 10/21/17 09:40 MCV 92.3 fl (80-99) 10/21/17 09:40 MCH 30.9 pg (27.0-31.0) 10/21/17 09:40 MCHC Differential 33.5 pg (28.0-36.0) 10/21/17 09:40 RDW 19.5 % (11.5-20.0) 10/21/17 09:40 Plt Count 203 Th/cmm (150-400) D 10/21/17 09:40 MPV 6.6 fl 10/21/17 09:40 Neutrophils % 62.8 % (40.0-80.0) 10/21/17 09:40 Lymphocytes % 15.8 % (20.0-50.0) L 10/21/17 09:40 Monocytes % 3.8 % (2.0-10.0) 10/21/17 09:40 Eosinophils % 16.6 % (0.0-5.0) H 10/21/17 09:40 Basophils % 1.0 % (0.0-2.0) 10/21/17 09:40 PT 11.4 SECONDS (9.5-11.5) 10/17/17 09:55 INR 1.09 (0.5-1.4) 10/17/17 09:55 Sodium 131 mEq/L (136-145) L 10/21/17 09:40 Potassium 3.2 mEq/L (3.5-5.1) L 10/21/17 09:40 Chloride 95 mEq/L (98-107) L 10/21/17 09:40 Carbon Dioxide 26.9 mEq/L (21.0-31.0) 10/21/17 09:40 Anion Gap 12.3 (7.0-16.0) 10/21/17 09:40 BUN 29 mg/dL (7-25) H 10/21/17 09:40 Creatinine 4.7 mg/dL (0.7-1.3) H* 10/21/17 09:40 Est GFR ( Amer) TNP 10/21/17 09:40 Est GFR (Non-Af Amer) TNP 10/21/17 09:40 BUN/Creatinine Ratio 6.2 10/21/17 09:40 Glucose 152 mg/dL (70-105) H 10/21/17 09:40 Calcium 8.5 mg/dL (8.6-10.3) L 10/21/17 09:40 Phosphorus 4.0 mg/dL (2.5-5.0) 10/19/17 06:05 Iron 47 ug/dL (38-169) 10/20/17 06:00 TIBC 214 ug/dL (250-450) L 10/20/17 06:00 Iron Saturation 22 % (15-55) 10/20/17 06:00 Unsaturated IBC 167 ug/dL (111-343) 10/20/17 06:00 Total Bilirubin 0.7 mg/dL (0.3-1.0) 10/21/17 09:40 AST 20 U/L (13-39) 10/21/17 09:40 ALT 17 U/L (7-52) 10/21/17 09:40 Alkaline Phosphatase 228 U/L (34-104) H 10/21/17 09:40 B-Natriuretic Peptide > 5000.0 pg/mL (5.0-100.0) H 10/20/17 06:00 Total Protein 8.1 gm/dL (6.0-8.3) 10/21/17 09:40 Albumin 2.9 gm/dL (4.2-5.5) L 10/21/17 09:40 Globulin 5.2 gm/dL 10/21/17 09:40 Albumin/Globulin Ratio 0.6 (1.0-1.8) L 10/21/17 09:40 TSH 3.68 uIU/ml (0.34-5.60) 10/20/17 06:00 Blood Type AB POSITIVE 10/17/17 09:55 Antibody Screen NEGATIVE 10/17/17 09:55 - Physical Exam Vitals and I&O: Vital Signs Temp 96.9 F 10/21/17 12:00 Pulse 66 10/21/17 12:00 Resp 17 10/21/17 12:00 BP 177/44 10/21/17 12:00 Pulse Ox 100 10/21/17 12:00 Intake & Output 10/20/17 10/21/17 10/21/17 18:59 06:59 18:59 Intake Total 50 25 Balance 50 25 Weight (lbs) 48.988 kg 48.988 kg Intake: Oral 50 25 Other: # Voids 0 0 Active Medications: Current Medications Acetaminophen (Tylenol) 650 mg PO Q4HR PRN PRN Reason: Pain or Fever >101 Stop: 12/16/17 05:51 Acetaminophen/Hydrocodone Bitart ([place] 5mg/325mg) 1 tab PO Q6HR PRN PRN Reason: Pain (Severe) Stop: 12/16/17 05:51 Aspirin (Aspirin Chewable) 81 mg PO DAILY [facility] Stop: 12/16/17 08:59 Last Admin: 10/21/17 11:09 Dose: Not Given Bisacodyl (Dulcolax 10 Mg Supp) 10 mg RC DAILY PRN PRN Reason: Constipation Stop: 12/16/17 05:51 Calcium Carbonate (Tums) 500 mg PO Q6HR PRN PRN Reason: Heartburn Stop: 12/16/17 05:51 Clonidine HCl (Ofhqqesl-Srw-4) 1 patch TD QMON [facility] Stop: 12/20/17 05:51 Last Admin: 10/21/17 07:35 Dose: 1 patch Epoetin Satish (Epogen) 10,000 units SUBQ MoWeFr [facility] Stop: 12/18/17 12:32 Last Admin: 10/20/17 11:19 Dose: Not Given Albumin Human (Albuminar 25%) 25 gm in 100 mls @ 50 mls/hr IV ZULY PRN PRN Reason: BP Support During HD Levofloxacin (Levaquin) 250 mg PO Q48H [facility] Stop: 12/18/17 20:59 Last Admin: 10/19/17 21:57 Dose: Not Given Magnesium Hydroxide (Milk Of Magnesia) 30 ml PO HS PRN PRN Reason: Constipation Stop: 12/16/17 05:51 Metoprolol Tartrate (Lopressor) 25 mg PO BID [facility] Stop: 12/16/17 08:59 Last Admin: 10/21/17 11:09 Dose: Not Given Miscellaneous (Vte Chemical Prophylaxis Screen/ Admission) 1 ea MC PRN PRN PRN Reason: PROTOCOL Stop: 12/16/17 08:59 Miscellaneous (Clinical Monitoring) 1 ea MC DAILY PRN PRN Reason: RENAL Stop: 12/19/17 17:47 Nitroglycerin (Nitro-Bid) 1 inch TP Q8HR [facility] Stop: 12/16/17 12:59 Last Admin: 10/21/17 07:29 Dose: Not Given Pantoprazole Sodium (Protonix) 40 mg PO DAILY [facility] Stop: 12/16/17 08:59 Last Admin: 10/21/17 11:09 Dose: Not Given Sevelamer Carbonate (Renvela) 2,400 mg PO TID [facility] Stop: 12/16/17 08:59 Last Admin: 10/21/17 11:10 Dose: Not Given Sodium Phosphate (Fleet Enema) 135 ml RC Q48HR PRN PRN Reason: Constipation Stop: 12/16/17 05:51 Vancomycin HCl (Vancomycin Oral) 250 mg PO QID [facility] Stop: 12/16/17 12:59 Last Admin: 10/21/17 11:10 Dose: Not Given Venlafaxine HCl (Effexor Xr) 37.5 mg PO DAILY [facility] PRN Reason: Protocol Stop: 12/16/17 08:59 Zolpidem Tartrate (Ambien) 5 mg PO HS PRN PRN Reason: Insomnia Stop: 12/16/17 05:51 Last Admin: 10/20/17 01:05 Dose: 5 mg General: Alert HEENT: Atraumatic, PERRLA Neck: Supple, +2 carotid pulse wo bruit Cardiovascular: Regular rate, Normal S1, Normal S2 Lungs: Clear to auscultation Abdomen: Bowel sounds, Soft Extremities: no Clubbing, no Cyanosis, no Edema Neurological: Sensation intact Skin: no Rash Psych/Mental Status: Other (periods of psychosis) Assessment/Plan - Assessment Assessment: ESRD on HD Anemia of CKD Ess Htn COPD Psych C. diff Type 2 DM - Plan Plan: Lab - Result Diagrams 10/17/17 09:55 10/17/17 09:55 Current Medications Acetaminophen (Tylenol) 650 mg PO Q4HR PRN PRN Reason: Pain or Fever >101 Stop: 12/16/17 05:51 Acetaminophen/Hydrocodone Bitart ([place] 5mg/325mg) 1 tab PO Q6HR PRN PRN Reason: Pain (Severe) Stop: 12/16/17 05:51 Aspirin (Aspirin Chewable) 81 mg PO DAILY [facility] Stop: 12/16/17 08:59 Last Admin: 10/18/17 08:58 Dose: Not Given Bisacodyl (Dulcolax 10 Mg Supp) 10 mg RC DAILY PRN PRN Reason: Constipation Stop: 12/16/17 05:51 Calcium Carbonate (Tums) 500 mg PO Q6HR PRN PRN Reason: Heartburn Stop: 12/16/17 05:51 Clonidine HCl (Egsruzdd-Mgh-0) 1 patch TD QMON [facility] Stop: 12/20/17 05:51 Epoetin Satish (Epogen) 10,000 units SUBQ MoWeFr [facility] Stop: 12/18/17 12:32 Levofloxacin (Levaquin) 250 mg PO Q48H [facility] Stop: 12/18/17 20:59 Magnesium Hydroxide (Milk Of Magnesia) 30 ml PO HS PRN PRN Reason: Constipation Stop: 12/16/17 05:51 Metoprolol Tartrate (Lopressor) 25 mg PO BID [facility] Stop: 12/16/17 08:59 Last Admin: 10/18/17 08:58 Dose: Not Given Miscellaneous (Vte Chemical Prophylaxis Screen/ Admission) 1 ea [facility] PRN PRN PRN Reason: PROTOCOL Stop: 12/16/17 08:59 Nitroglycerin (Nitro-Bid) 1 inch TP Q8HR [facility] Stop: 12/16/17 12:59 Last Admin: 10/18/17 13:49 Dose: Not Given Pantoprazole Sodium (Protonix) 40 mg PO DAILY [facility] Stop: 12/16/17 08:59 Last Admin: 10/18/17 08:58 Dose: Not Given Sevelamer Carbonate (Renvela) 2,400 mg PO TID [facility] Stop: 12/16/17 08:59 Last Admin: 10/18/17 13:48 Dose: Not Given Sodium Phosphate (Fleet Enema) 135 ml RC Q48HR PRN PRN Reason: Constipation Stop: 12/16/17 05:51 Vancomycin HCl (Vancomycin Oral) 250 mg PO QID [facility] Stop: 12/16/17 12:59 Last Admin: 10/18/17 13:49 Dose: Not Given Venlafaxine HCl (Effexor Xr) 37.5 mg PO DAILY [facility] PRN Reason: Protocol Stop: 12/16/17 08:59 Zolpidem Tartrate (Ambien) 5 mg PO HS PRN PRN Reason: Insomnia Stop: 12/16/17 05:51 Last Admin: 10/17/17 23:54 Dose: 5 mg Lab - Result Diagrams 10/21/17 09:40 10/21/17 09:40 refusing blood draw & meds however agreed w/ dialysis today replace K
[2017-10-21] MEDS ORDERED: Potassium Chloride 20 mEq ER Tab PO SCH (13:15)
[2017-10-21] MEDS ORDERED: cloNIDine 0.3 mg/24 hr Tdm TD SCH (14:00)
[2017-10-21] MEDS: Epoetin Alfa 20000 Units/mL Vial SUBQ SCH (15:00)
--- NOTE | 2017-10-22 11:52 | Consultation ---
DATE OF CONSULTATION: 10/20/2017 PATIENT OF: Dr. Sy. HISTORY AND PHYSICAL: This is an 82-year-old [place] male patient with known end-stage renal disease, on dialysis, came to the Emergency Room with severe anemia, shortness of breath. PAST MEDICAL HISTORY: Diabetes mellitus type 2, diabetic CKD stage 5, end-stage renal disease on dialysis, hypertension, anemia, depression, anxiety, psychosis, COPD, left eye blindness. FAMILY HISTORY: Unremarkable. SOCIAL HISTORY: No history of smoking, alcohol abuse. ALLERGIES: None. PHYSICAL EXAMINATION: VITAL SIGNS: Blood pressure 150/80, pulse 80, respirations 28. HEAD: Normocephalic. No lumps or bumps. EYES: Pupils equal, reactive to light. Fundi showing nicking, sclerae white, conjunctivae pink. NECK: Carotid 2+. Normal upstroke. JVD 10 cm above sternal angle. Thyroid not palpable. Lymph nodes not palpable. CHEST: Shows increased AP diameter. No kyphosis, scoliosis. LUNGS: Bilateral rales. Decreased breath sounds on the bases. HEART: PMI sixth intercostal space with lateral to midclavicular line. S1, S2, S3, S4. Soft systolic murmur. ABDOMEN: Soft. Liver, spleen not palpable. No organomegaly. Bowel sounds active. NEUROLOGIC: Unremarkable. EXTREMITIES: Peripheral pulses 2+. No pedal edema. CLINICAL IMPRESSION: Congestive heart failure, diastolic dysfunction, hypertension, uncontrolled, hypokalemia, diabetes mellitus type 2, diabetic CKD stage 5, end-stage renal disease on dialysis, dementia, psychosis, diabetes mellitus type 2. PLAN: The patient to have evaluation by a piping supervisor. The patient to continue present care. Monitor the patient. The patient to have echocardiogram for left ventricular function. [facility]# [id number]
--- NOTE | 2017-10-22 17:44 | Discharge Summary ---
DATE OF DISCHARGE: 10/21/2017 PRELIMINARY DIAGNOSES: 1. Anemia. 2. End-stage renal disease, on hemodialysis. 3. Pneumonia. 4. Sepsis. 5. Anxiety and depression. 6. Chronic obstructive pulmonary disease. 7. Dementia. 8. Psychosis 9. Diabetes mellitus. 10. Congestive heart failure 11. Hypertension. DISCHARGE DIAGNOSES: 1. Anemia. 2. End-stage renal disease, on hemodialysis. 3. Pneumonia. 4. Sepsis. 5. Anxiety and depression. 6. Chronic obstructive pulmonary disease. 7. Dementia. 8. Psychosis 9. Diabetes mellitus. 10. Congestive heart failure 11. Hypertension. BRIEF HISTORY OF PRESENT ILLNESS: This is an 82-year-old male who presents to [facility] ER for evaluation of low hemoglobin, [facility]. The patient had some initial lab work done at the previous nursing facility, which revealed hemoglobin of 7.2, hematocrit 21.6. The patient also had a potassium of 6.0. While in the ER, the patient became combative and refused to have his blood drawn while in the ER. PAST MEDICAL HISTORY: Includes pneumonia, sepsis, anxiety, depression, COPD, dementia, C. diff, end-stage renal disease, psychosis, diabetes, congestive heart failure, hypertension. PAST SURGICAL HISTORY: Includes AV shunt noted in the left arm. HOSPITAL COURSE: The patient was subsequently admitted for further evaluation and treatment. The patient improved during his hospital stay. He was seen by Nephrology, Dr. Muro, please see dictated report. The patient was also seen by Psychiatry, by Dr. Castro, please see dictated report as well as in Infectious Disease, Dr. Jose Parikh, please see dictated report. A chest x-ray had been ordered when he was initially admitted, which revealed pulmonary vascular congestion and cardiomegaly. The patient was subsequently discharged in stable condition to continue his current medications. [facility]# [id number]
== END 2017-10-21 17:46 | disposition home or self-care (01) | DRG 871 ==
LOC: ER 19:54 → MSI 10-17 02:15
PROVIDERS: ADMIT Family Medicine; ATTEND Family Medicine
PROC: 5A1D70Z Performance of Urinary Filtration, Intermittent, Less than 6 Hours Per Day (ICD-10-PCS; principal; 2017-10-19)
PROC: 5A1D70Z Performance of Urinary Filtration, Intermittent, Less than 6 Hours Per Day (ICD-10-PCS; 2017-10-21)
DX: A41.9 Sepsis, unspecified organism (principal); N18.6 End stage renal disease; I13.2 Hypertensive heart and chronic kidney disease with heart failure and with stage 5 chronic kidney disease, or end stage renal disease; E46 Unspecified protein-calorie malnutrition; J18.9 Pneumonia, unspecified organism; E11.22 Type 2 diabetes mellitus with diabetic chronic kidney disease; F03.91 Unspecified dementia, unspecified severity, with behavioral disturbance; I50.31 Acute diastolic (congestive) heart failure; F33.9 Major depressive disorder, recurrent, unspecified; E87.1 Hypo-osmolality and hyponatremia; Z68.1 Body mass index [BMI] 19.9 or less, adult; Z99.2 Dependence on renal dialysis; F41.9 Anxiety disorder, unspecified; J44.9 Chronic obstructive pulmonary disease, unspecified; F29 Unspecified psychosis not due to a substance or known physiological condition; D63.1 Anemia in chronic kidney disease; E78.5 Hyperlipidemia, unspecified; H54.40 Blindness, one eye, unspecified eye; D50.9 Iron deficiency anemia, unspecified; N40.0 Benign prostatic hyperplasia without lower urinary tract symptoms; M19.90 Unspecified osteoarthritis, unspecified site; E87.6 Hypokalemia; Z79.82 Long term (current) use of aspirin; Z79.899 Other long term (current) drug therapy; Z87.81 Personal history of (healed) traumatic fracture; Z86.19 Personal history of other infectious and parasitic diseases
CPT/HCPCS: 36415-UA; 71010-TC; 80053-TC; 83540-90; 83550-90; 83880-TC; 84100-TC; 84443-TC; 85007-TC; 85025-TC; 85027-TC; 85610-TC; 86850-TC; 86900-TC; 86901-TC; 93005; J0885; J3370; J7030; Z7610